=== PATIENT | male | born 1940 | race Asian ===

== ENCOUNTER 2017-03-29 04:18 | Inpatient (IN) | payer MEDICARE, OTHER ==
[~2017-03-29] VITALS: Ht 170.2 cm; Wt 72.6 kg
[2017-03-29] VITALS (8 sets, daily range): BP systolic 130–166; BP diastolic 62–94
[2017-03-29] MEDS ORDERED: Morphine Sulfate 4mg/ml Inj IVP ONE ×2 (04:45→08:30)
[2017-03-29 05:20] LABS: EOSINOPHILS % (AUTO) 7.6 % (0.0-3.0); LYMPHOCYTES % (AUTO) 12.3 % (20.0-45.0); MEAN CORPUSCULAR HEMOGLOBIN 28.2 PG (27.0-31.0); MEAN CORPUSCULAR HGB CONC 31.6 G/DL (32.0-36.0); MEAN CORPUSCULAR VOLUME 89 FL (80-99); MEAN PLATELET VOLUME 6.9 FL (6.5-10.1); MONOCYTES % (AUTO) 12.7 % (1.0-10.0); NEUTROPHILS % (AUTO) 66.5 % (45.0-75.0); PLATELET COUNT 255 K/UL (150-450); RED BLOOD COUNT 4.81 M/UL (4.70-6.10); RED CELL DISTRIBUTION WIDTH 13.2 % (11.6-14.8); WHITE BLOOD COUNT 10.3 K/UL (4.8-10.8)
[2017-03-29 05:40] LABS: TROPONIN I < 0.30 ng/mL (<=0.30)
[2017-03-29 05:41] LABS: ALANINE AMINOTRANSFERASE 10 U/L (3-41); ALBUMIN/GLOBULIN RATIO 1.4 (1.0-2.7); ANION GAP 10 (5-15); ASPARTATE AMINO TRANSFERASE 14 U/L (5-40); CALCIUM 9.2 mg/dL (8.6-10.2); CARBON DIOXIDE 28 mEQ/L (20-30); CHLORIDE 99 mEQ/L (98-107); CREATININE 1.2 mg/dL (0.7-1.2); HEMOLYSIS 2; LIPASE 252 U/L (< 60); POTASSIUM 4.2 mEQ/L (3.4-4.9); SODIUM 137 mEQ/L (135-145); TOTAL PROTEIN 7.3 g/dL (6.6-8.7)
--- NOTE | 2017-03-29 05:47 | Emergency Room Report ---
History of Present Illness General Chief Complaint: Lower Back Pain or Injury Source: Patient (JHONY HOWE M.D.) Present Illness HPI 77-year-old male presents ED complaining of back pain. is at bedside states patient is complaining of left-sided back pain for the last 3 days. Was scheduled to see his PMD today but the pain was so bad he came into the ER. Patient notes pain to the left lower back. 05/24, sharp, nonradiating. Patient denies any prior history of back pain. Denies any recent trauma. Patient is also complaining of some abdominal pain. Denies chest pain or shortness of breath. Denies dysuria or hematuria. No other aggravating or leading factors. Denies any other associated symptoms (JHONY HOWE M.D.) Allergies: Coded Allergies: No Known Allergies (Verified Allergy, Mild, 08/29/10) Patient History Past Medical History: asthma Past Surgical History: none Pertinent Family History: none Social History: Denies: alcohol use, drug use, smoking Immunizations: UTD Reviewed Nursing Documentation: PMH: Agreed, PSxH: Agreed (JHONY HOWE M.D.) Nursing Documentation-PMH Hx Asthma: Yes (JHONY HOWE M.D.) Review of Systems All Other Systems: negative except mentioned in HPI (JHONY HOWE M.D.) Physical Exam Vital Signs Date Time Temp Pulse Resp B/P Pulse Ox O2 Delivery O2 Flow Rate FiO2 03/29/17 04:36 97.9 87 18 158/87 98 Room Air Sp02 EP Interpretation: reviewed, normal General Appearance: alert, GCS 15, non-toxic, mild distress Head: normocephalic Eyes: bilateral eye PERRL, bilateral eye normal inspection ENT: normal ENT inspection Neck: normal inspection Respiratory: chest non-tender, lungs clear, normal breath sounds, speaking full sentences Cardiovascular #1: regular rate, rhythm, no edema Gastrointestinal: normal bowel sounds, soft, non-distended, no guarding, no rebound, tenderness Rectal: deferred Genitourinary: no CVA tenderness Musculoskeletal: tender - paraspinal lumbar tenderness Neurologic: alert, oriented x3, responsive, motor strength/tone normal, sensory intact, speech normal Psychiatric: judgement/insight normal, memory normal, mood/affect normal, no suicidal/homicidal ideation Skin: normal inspection Lymphatic: normal inspection (JHONY HOWE M.D.) Medical Decision Making Diagnostic Impression: Primary Impression: Abdominal pain Additional Impression: Pancreatitis ER Course Received signout from Dr. Howe 77 yo M with abd pain found to have pancreatitis with elevated lipase Patient received IV fluids and morphine. CT abdomen pelvis prelim read from radiology no acute intra-abdominal disease. Discussed with hospitalist Dr. Primitivo Mohan. Will admit to [facility]. (Denis Kohli M.D.) Last Vital Signs Date Time Temp Pulse Resp B/P Pulse Ox O2 Delivery O2 Flow Rate FiO2 03/29/17 05:28 97.9 03/29/17 04:44 18 158/87 98 Room Air 03/29/17 04:36 87 (JHONY HOWE M.D.) Referrals: TOMASA VALERO (PCP) JHONY HOWE M.D. Mar 29, 2017 05:47 Denis Kohli M.D. Mar 29, 2017 07:57
[2017-03-29 06:12] LABS: APPEARANCE,URINE CLEAR; KETONES,URINE 1+ (NEGATIVE); LEUKOCYTE ESTERASE ,URINE NEGATIVE (NEGATIVE); NITRITE,URINE NEGATIVE (NEGATIVE); PH,URINE 6 (4.5-8.0); PROTEIN,URINE 2+ (NEGATIVE); UROBILINOGEN,URINE NORMAL MG/DL (0.0-1.0)
[2017-03-29 06:21] LABS: WBC,URINE 0 /HPF (0 - 0)
[2017-03-29] MEDS ORDERED: SIMVASTATIN40 MG ORAL (06:37)
[2017-03-29] MEDS ORDERED: ALLOPURINOL100 M1 ORAL (06:37)
[2017-03-29] MEDS ORDERED: TAMSULOSIN HCL0.4 MG ORAL (06:37)
[2017-03-29] MEDS ORDERED: DALIRESP500 MCG PO (06:37)
[2017-03-29] MEDS ORDERED: SYMBICORT 16010.2 G1 IH (06:37)
[2017-03-29] MEDS ORDERED: MONTELUKAST SOD10 MG ORAL (06:37)
--- NOTE | 2017-03-29 09:31 | Diagnostic Imaging Report ---
Clinical Indication: Abdominal pain Technique: No oral contrast utilized, per emergency room physician request IV administration nonionic contrast. Venous phase spiral acquisition obtained through the abdomen and pelvis. Multiplanar reconstructions were generated. Total dose length product 759 mGycm. CTDIvol(s) 15 mGy. Dose reduction achieved using automated exposure control Comparison: 06/25/2009 Findings: What is probably a normal appendix is demonstrated, less apparent than previously. There is no evidence of diverticulosis or diverticulitis. No small bowel distention. No free or loculated intraperitoneal air or fluid is evident. There is a small sliding-type hiatal hernia The liver, gallbladder, bile ducts, pancreas, spleen, adrenals are unremarkable. The kidneys demonstrate bilateral cysts as well as bilateral subcentimeter low-attenuation lesions which are too small to characterize but most likely represent benign simple cysts, similar in appearance to the previous exam. No retroperitoneal or pelvic mass or adenopathy. Varicosities are seen within the pelvis. The prostate is prominent, indents the bladder floor. Bladder is unremarkable. The included lung bases are clear. The heart is mildly enlarged. The bones demonstrate degenerative spondylosis changes. Impression: No acute abnormality Prominent prostate, indenting the bladder floor, somewhat larger than previously. Correlate with clinical and laboratory findings Cardiomegaly Pelvic varicosities, of uncertain significance Degenerative spondylosis Bilateral renal cysts. Bilateral renal low-attenuation lesions which are too small to characterize, most likely benign simple cysts. No further followup necessary Other findings as noted, including small sliding-type hiatal hernia, degenerative spondylosis This agrees with the preliminary interpretation provided overnight by Dr. Bauer The CT scanner at [facility] is accredited by the [employer] and the scans are performed using protocols designed to limit radiation exposure to as low as reasonably achievable to attain images of sufficient resolution adequate for diagnostic evaluation.
[2017-03-29] MEDS ORDERED: Zolpidem 5mg tab ORAL ONE (10:45)
[2017-03-29] MEDS: cefTRIAXone 1 GM in NS 55 ML IVPB SCH (13:34)
[2017-03-29] MEDS ORDERED: Morphine Sulfate 2mg/ml Inj IVP PRN (14:15)
[2017-03-29] MEDS ORDERED: Metoclopramide 10mg/2ml Inj IVP PRN (14:15)
[2017-03-29] MEDS ORDERED: Milk of Magnesia 30ml Ud ORAL PRN (14:15)
[2017-03-29] MEDS ORDERED: Morphine Sulfate 4mg/ml Inj IVP PRN (14:15)
[2017-03-29] MEDS ORDERED: Miralax 17gm pkt ORAL PRN (14:15)
--- NOTE | 2017-03-29 14:55 | Infectious Diseases Prog Note ---
Assessment/Plan Assessment/Plan Full consult dictated: A) 1) ? scabies rash 2) hematuria, ? uti/pyelonephritis, ? cva pain left 3) pancreatitis, abdominal pain/back pain, ? cva pain 4) bph P) 1) elimite x 1 and repeat in one week 2) rocephin, check urine culture 3) ct noted 4) check labs 5) thank you Subjective Allergies: Coded Allergies: No Known Allergies (Verified Allergy, Mild, 08/29/10) Objective Vital Signs Last 24 Hour Vital Signs Date Time Temp Pulse Resp B/P Pulse Ox O2 Delivery O2 Flow Rate FiO2 03/29/17 13:46 97.0 03/29/17 12:00 97.9 80 18 166/94 98 Room Air 03/29/17 11:22 97 20 154/79 99 Room Air 03/29/17 11:00 97 20 154/79 97 Room Air 03/29/17 09:23 97.0 03/29/17 07:10 97.0 71 16 153/74 98 Room Air 03/29/17 06:25 97.0 90 18 139/62 97 Room Air 03/29/17 05:28 97.9 03/29/17 04:44 97.9 18 158/87 98 Room Air 03/29/17 04:36 97.9 87 18 158/87 98 Room Air Height (Feet): 5 Height (Inches): 7.00 Weight (Pounds): 160 Laboratory Tests Test 03/29/17 04:50 03/29/17 05:55 White Blood Count 10.3 K/UL (4.8-10.8) Red Blood Count 4.81 M/UL (4.70-6.10) Hemoglobin 13.6 G/DL (14.2-18.0) L Hematocrit 42.9 % (42.0-52.0) Mean Corpuscular Volume 89 FL (80-99) Mean Corpuscular Hemoglobin 28.2 PG (27.0-31.0) Mean Corpuscular Hemoglobin Concent 31.6 G/DL (32.0-36.0) L Red Cell Distribution Width 13.2 % (11.6-14.8) Platelet Count 255 K/UL (150-450) Mean Platelet Volume 6.9 FL (6.5-10.1) Neutrophils (%) (Auto) 66.5 % (45.0-75.0) Lymphocytes (%) (Auto) 12.3 % (20.0-45.0) L Monocytes (%) (Auto) 12.7 % (1.0-10.0) H Eosinophils (%) (Auto) 7.6 % (0.0-3.0) H Basophils (%) (Auto) 1.0 % (0.0-2.0) Sodium Level 137 mEQ/L (135-145) Potassium Level 4.2 mEQ/L (3.4-4.9) Chloride Level 99 mEQ/L (98-107) Carbon Dioxide Level 28 mEQ/L (20-30) Anion Gap 10 (5-15) Blood Urea Nitrogen 16 mg/dL (7-23) Creatinine 1.2 mg/dL (0.7-1.2) Estimat Glomerular Filtration Rate mL/min (>60) Glucose Level 117 mg/dL (74-106) H Calcium Level 9.2 mg/dL (8.6-10.2) Total Bilirubin 0.5 mg/dL (0.0-1.2) Aspartate Amino Transf (AST/SGOT) 14 U/L (5-40) Alanine Aminotransferase (ALT/SGPT) 10 U/L (3-41) Alkaline Phosphatase 57 U/L (40-129) Troponin I < 0.30 ng/mL (<=0.30) Total Protein 7.3 g/dL (6.6-8.7) Albumin 4.3 g/dL (3.5-5.2) Globulin 3.0 g/dL Albumin/Globulin Ratio 1.4 (1.0-2.7) Lipase 252 U/L (< 60) H Prostate Specific Antigen 4.7 ng/mL (< 4.5) H Urine Color Pale yellow Urine Appearance Clear Urine pH 6 (4.5-8.0) Urine Specific [place] 1.015 (1.005-1.035) Urine Protein 2+ (NEGATIVE) H Urine Glucose (UA) Negative (NEGATIVE) Urine Ketones 1+ (NEGATIVE) H Urine Occult Blood 4+ (NEGATIVE) H Urine Nitrite Negative (NEGATIVE) Urine Bilirubin Negative (NEGATIVE) Urine Urobilinogen Normal MG/DL (0.0-1.0) Urine Leukocyte Esterase Negative (NEGATIVE) Urine RBC 5-10 /HPF (0 - 0) H Urine WBC 0 /HPF (0 - 0) Urine Squamous Epithelial Cells None /LPF (NONE/OCC) Urine Bacteria None /HPF (NONE) Current Medications Medications (Trade) Dose Ordered Sig/Adore Route PRN Reason Start Time Stop Time Status Last Admin Dose Admin Acetaminophen (Tylenol) 650 mg Q6H PRN ORAL Mild Pain/Temp > 100.5 03/29/17 10:45 04/28/17 10:44 03/29/17 12:47 Bisacodyl 10 mg 10 mg HSPRN PRN RECTAL Constipation 03/29/17 14:30 04/28/17 14:14 Ceftriaxone Sodium/Sodium Chloride (Rocephin/Sodium Chloride) 55 ml @ 110 mls/hr Q24H IVPB 03/29/17 12:00 04/05/17 11:59 03/29/17 13:34 Dextrose (Dextrose 50%) STAT PRN IV Hypoglycemia 03/29/17 14:15 04/28/17 14:14 Diphenhydramine HCl (Benadryl) 25 mg Q6H PRN ORAL Itching/Pruritis 03/29/17 14:15 04/28/17 14:14 Docusate Sodium (Colace) 100 mg EVERY 12 HOURS ORAL 03/29/17 21:00 04/28/17 20:59 Heparin Sodium (Porcine) (Heparin 5000 units/ml) 5,000 units EVERY 8 HOURS SUBQ 03/29/17 14:00 04/28/17 13:59 Magnesium Hydroxide (Mom) 30 ml HSPRN PRN ORAL Constipation 03/29/17 14:15 04/28/17 14:14 Metoclopramide HCl (Reglan) 10 mg Q6H PRN IVP Nausea & Vomiting 03/29/17 14:15 04/28/17 14:14 Morphine Sulfate (Morphine Sulfate) 2 mg Q3H PRN IVP Moderate Pain (Pain Scale 4-6) 03/29/17 14:15 04/05/17 14:14 Morphine Sulfate (Morphine Sulfate) 4 mg Q3H PRN IVP Severe Pain (Pain Scale 7-10) 03/29/17 14:15 04/05/17 14:14 Ondansetron HCl (Zofran) 4 mg Q6H PRN IVP Nausea & Vomiting 03/29/17 14:15 04/28/17 14:14 Pantoprazole (Protonix) 40 mg DAILY ORAL 03/30/17 09:00 04/29/17 08:59 Polyethylene Glycol (Miralax) 17 gm HSPRN PRN ORAL Constipation 03/29/17 14:15 04/28/17 14:14 Potassium Chloride/Dextrose/ Sodium Chloride (KCl/D5 0.45% NS) 1,005 ml @ 100 mls/hr Q10H3M IV 03/29/17 15:00 04/28/17 14:59 Zolpidem Tartrate 5 mg 5 mg HSPRN PRN ORAL INSOMNIA 03/29/17 21:00 04/28/17 20:59 ASHLEY DURAN Mar 29, 2017 14:55
[2017-03-29] MEDS ORDERED: D5 1/2NS w/KCl 20mEq 1,000 ML IV SCH (15:00)
[2017-03-29] MEDS: Potassium Chloride 10 MEQ in D5 1/2NS 1,000 ML IV SCH (15:21)
[2017-03-29] MEDS: Heparin 5000 units/ml inj SUBQ SCH ×2 (15:23→20:45)
--- NOTE | 2017-03-29 15:27 | GI Initial Consult Note ---
Radha Peña NGenaro 03/29/17 1527: History of Present Illness General Date patient seen: Mar 29, 2017 Time patient seen: 15:17 Reason for Hospitalization: Lower Back Pain or Injury Referring physician: HARLEY Reason for Consultation: PANCREATITIS Present Illness HPI 77-year-old male presents ED complaining of back pain. is at bedside states patient is complaining of left-sided back pain for the last 3 days. Was scheduled to see his PMD today but the pain was so bad he came into the ER. Patient notes pain to the left lower back. 05/24, sharp, nonradiating. Patient denies any prior history of back pain. Denies any recent trauma. Patient is also complaining of some abdominal pain. Denies chest pain or shortness of breath. Denies dysuria or hematuria. No other aggravating or leading factors. Denies any other associated symptoms GI Consult. HPI as noted above. GI consulted for pancreatitis. ROS limited, patient is fatigue with at bedside. Patient presents today with pancreatitis, elevated lipase levels of 200+. Denies any ETOH, tobacco, IVDA use. CT AP shows no abnormality. Unknown history of endoscopic procedures at this time. Home Meds Reported Medications Budesonide/Formoterol Fumarate (SYMBICORT 160-4.5 MCG INHALER) 10.2 Gm Hfa.aer.ad, 1 PUFF IH, #1 INH 0 Refills 03/29/17 Roflumilast (DALIRESP) 500 Mcg Tablet, 500 MCG PO DAILY, TAB 03/29/17 Montelukast Sodium* (MONTELUKAST SODIUM*) 10 Mg Tablet, 10 MG ORAL DAILY, TAB 03/29/17 Tamsulosin Hcl (TAMSULOSIN HCL*) 0.4 Mg Cap.er.24h, 0.4 MG ORAL BEDTIME, CAP 03/29/17 Simvastatin (ZOCOR) 40 Mg Tablet, 40 MG ORAL BEDTIME, TAB 03/29/17 Allopurinol* (ALLOPURINOL*) 100 Mg Tablet, 100 MG ORAL DAILY, TAB 03/29/17 Med list reviewed/reconciled: Yes Allergies: Coded Allergies: No Known Allergies (Verified Allergy, Mild, 08/29/10) Patient History Limited by: medical condition History Provided By: Family Member, Medical Record Past Medical History: asthma PMH Narrative Past Medical History: asthma Past Surgical History: none Pertinent Family History: none Social History: Denies: alcohol use, drug use, smoking Immunizations: UTD Social History: Denies: alcohol use, drug use, other, smoking Review of Systems All Other Systems: negative except mentioned in HPI Physical Exam Vital Signs Date Time Temp Pulse Resp B/P Pulse Ox O2 Delivery O2 Flow Rate FiO2 03/29/17 04:36 97.9 87 18 158/87 98 Room Air Sp02 EP Interpretation: reviewed Labs Laboratory Tests Test 03/29/17 04:50 03/29/17 05:55 White Blood Count 10.3 K/UL (4.8-10.8) Red Blood Count 4.81 M/UL (4.70-6.10) Hemoglobin 13.6 G/DL (14.2-18.0) L Hematocrit 42.9 % (42.0-52.0) Mean Corpuscular Volume 89 FL (80-99) Mean Corpuscular Hemoglobin 28.2 PG (27.0-31.0) Mean Corpuscular Hemoglobin Concent 31.6 G/DL (32.0-36.0) L Red Cell Distribution Width 13.2 % (11.6-14.8) Platelet Count 255 K/UL (150-450) Mean Platelet Volume 6.9 FL (6.5-10.1) Neutrophils (%) (Auto) 66.5 % (45.0-75.0) Lymphocytes (%) (Auto) 12.3 % (20.0-45.0) L Monocytes (%) (Auto) 12.7 % (1.0-10.0) H Eosinophils (%) (Auto) 7.6 % (0.0-3.0) H Basophils (%) (Auto) 1.0 % (0.0-2.0) Sodium Level 137 mEQ/L (135-145) Potassium Level 4.2 mEQ/L (3.4-4.9) Chloride Level 99 mEQ/L (98-107) Carbon Dioxide Level 28 mEQ/L (20-30) Anion Gap 10 (5-15) Blood Urea Nitrogen 16 mg/dL (7-23) Creatinine 1.2 mg/dL (0.7-1.2) Estimat Glomerular Filtration Rate mL/min (>60) Glucose Level 117 mg/dL (74-106) H Calcium Level 9.2 mg/dL (8.6-10.2) Total Bilirubin 0.5 mg/dL (0.0-1.2) Aspartate Amino Transf (AST/SGOT) 14 U/L (5-40) Alanine Aminotransferase (ALT/SGPT) 10 U/L (3-41) Alkaline Phosphatase 57 U/L (40-129) Troponin I < 0.30 ng/mL (<=0.30) Total Protein 7.3 g/dL (6.6-8.7) Albumin 4.3 g/dL (3.5-5.2) Globulin 3.0 g/dL Albumin/Globulin Ratio 1.4 (1.0-2.7) Lipase 252 U/L (< 60) H Prostate Specific Antigen 4.7 ng/mL (< 4.5) H Urine Color Pale yellow Urine Appearance Clear Urine pH 6 (4.5-8.0) Urine Specific [place] 1.015 (1.005-1.035) Urine Protein 2+ (NEGATIVE) H Urine Glucose (UA) Negative (NEGATIVE) Urine Ketones 1+ (NEGATIVE) H Urine Occult Blood 4+ (NEGATIVE) H Urine Nitrite Negative (NEGATIVE) Urine Bilirubin Negative (NEGATIVE) Urine Urobilinogen Normal MG/DL (0.0-1.0) Urine Leukocyte Esterase Negative (NEGATIVE) Urine RBC 5-10 /HPF (0 - 0) H Urine WBC 0 /HPF (0 - 0) Urine Squamous Epithelial Cells None /LPF (NONE/OCC) Urine Bacteria None /HPF (NONE) General Appearance: no apparent distress, alert Head: normocephalic EENT: PERRL/EOMI, normal ENT inspection Neck: supple Respiratory: normal breath sounds, no respiratory distress Cardiovascular: normal rate Gastrointestinal: normal inspection, non tender, soft Rectal: deferred Musculoskeletal: normal inspection, back normal, digits/nails normal, gait/ station normal Neurologic: normal inspection, alert, oriented x3, responsive Psychiatric: normal inspection, judgement/insight normal, memory normal Skin: normal inspection, normal color, no rash, warm/dry Lymphatic: normal inspection, no adenopathy Current Medications Current Medications Medications (Trade) Dose Ordered Sig/Adore Route PRN Reason Start Time Stop Time Status Last Admin Dose Admin Acetaminophen (Tylenol) 650 mg Q6H PRN ORAL Mild Pain/Temp > 100.5 03/29/17 10:45 04/28/17 10:44 03/29/17 12:47 Bisacodyl 10 mg 10 mg HSPRN PRN RECTAL Constipation 03/29/17 14:30 04/28/17 14:14 Ceftriaxone Sodium/Sodium Chloride (Rocephin/Sodium Chloride) 55 ml @ 110 mls/hr Q24H IVPB 03/29/17 12:00 04/05/17 11:59 03/29/17 13:34 Dextrose (Dextrose 50%) STAT PRN IV Hypoglycemia 03/29/17 14:15 04/28/17 14:14 Diphenhydramine HCl (Benadryl) 25 mg Q6H PRN ORAL Itching/Pruritis 03/29/17 14:15 04/28/17 14:14 Docusate Sodium (Colace) 100 mg EVERY 12 HOURS ORAL 03/29/17 21:00 04/28/17 20:59 Heparin Sodium (Porcine) (Heparin 5000 units/ml) 5,000 units EVERY 8 HOURS SUBQ 03/29/17 14:00 04/28/17 13:59 Magnesium Hydroxide (Mom) 30 ml HSPRN PRN ORAL Constipation 03/29/17 14:15 04/28/17 14:14 Metoclopramide HCl (Reglan) 10 mg Q6H PRN IVP Nausea & Vomiting 03/29/17 14:15 04/28/17 14:14 Morphine Sulfate (Morphine Sulfate) 2 mg Q3H PRN IVP Moderate Pain (Pain Scale 4-6) 03/29/17 14:15 04/05/17 14:14 Morphine Sulfate (Morphine Sulfate) 4 mg Q3H PRN IVP Severe Pain (Pain Scale 7-10) 03/29/17 14:15 04/05/17 14:14 Ondansetron HCl (Zofran) 4 mg Q6H PRN IVP Nausea & Vomiting 03/29/17 14:15 04/28/17 14:14 Pantoprazole (Protonix) 40 mg DAILY ORAL 03/30/17 09:00 04/29/17 08:59 Permethrin (Elimite) 1 applic ONCE ONCE TOPIC 03/29/17 16:00 03/29/17 16:01 Polyethylene Glycol (Miralax) 17 gm HSPRN PRN ORAL Constipation 03/29/17 14:15 04/28/17 14:14 Potassium Chloride/Dextrose/ Sodium Chloride (KCl/D5 0.45% NS) 1,005 ml @ 100 mls/hr Q10H3M IV 03/29/17 15:00 04/28/17 14:59 Zolpidem Tartrate 5 mg 5 mg HSPRN PRN ORAL INSOMNIA 03/29/17 21:00 04/28/17 20:59 GI: Plan Problems: (1) Abdominal pain (2) Pancreatitis Plan CT AP reviewed >> No acute abnormality elevated lipase >> 252 denies ETOH use maintain NPO + IV hydration ppi pain control fu lipid panel repeat amylase/lipase fu labs outpatient GI procedures. Discussed with Dr. Almonte. Thank you for referring this patient, we will follow. MEGAN ALMONTE 04/01/17 1025: History of Present Illness General Reason for Hospitalization: Lower Back Pain or Injury Present Illness Home Meds Reported Medications Budesonide/Formoterol Fumarate (SYMBICORT 160-4.5 MCG INHALER) 10.2 Gm Hfa.aer.ad, 1 PUFF IH, #1 INH 0 Refills 03/29/17 Roflumilast (DALIRESP) 500 Mcg Tablet, 500 MCG PO DAILY, TAB 03/29/17 Montelukast Sodium* (MONTELUKAST SODIUM*) 10 Mg Tablet, 10 MG ORAL DAILY, TAB 03/29/17 Tamsulosin Hcl (TAMSULOSIN HCL*) 0.4 Mg Cap.er.24h, 0.4 MG ORAL BEDTIME, CAP 03/29/17 Simvastatin (ZOCOR) 40 Mg Tablet, 40 MG ORAL BEDTIME, TAB 03/29/17 Allopurinol* (ALLOPURINOL*) 100 Mg Tablet, 100 MG ORAL DAILY, TAB 03/29/17 Allergies: Coded Allergies: No Known Allergies (Verified Allergy, Mild, 08/29/10) GI: Plan Plan The patient was seen and examined at bedside and all new and available data was reviewed in the patients chart. I agree with the above findings, impression and plan. (Patient seen earlier today. Signature stamp does not reflect patient encounter time.). -Radha Chopra MD N.PKota Mar 29, 2017 15:27 MEGAN ALMONTE Apr 01, 2017 10:25
--- NOTE | 2017-03-29 15:37 | History and Physical ---
History of Present Illness General Date patient seen: Mar 29, 2017 Time patient seen: 15:37 Reason for Hospitalization: Abd pain and back pain Present Illness HPI 77y/o male with pmh of HLD, gout, COPD who presents with abd pain and back pain. Pt has had worsening symptoms for 3 days. He describes back pain radiating to abdomen. He was supposed to see PMD today but pain was so bad that he came into ER. Pain described as sharp. Denies prior episodes of similar pain. Denies trauma, f/c, n/v, d/c, chest pain, SOB. Also c/o dysuria. Has skin lesions throughout and has had a recent biopsy. It is itchy. He is applying a topical steroid to lesions w/ some improvement. Denies alcohol abuse. Allergies: Coded Allergies: No Known Allergies (Verified Allergy, Mild, 08/29/10) Medication History Scheduled Allopurinol* (Allopurinol*), 100 MG ORAL DAILY, (Reported) Montelukast Sodium* (Montelukast Sodium*), 10 MG ORAL DAILY, (Reported) Roflumilast (Daliresp), 500 MCG PO DAILY, (Reported) Simvastatin (Zocor), 40 MG ORAL BEDTIME, (Reported) Tamsulosin Hcl (Tamsulosin Hcl*), 0.4 MG ORAL BEDTIME, (Reported) Miscellaneous Medications Budesonide/Formoterol Fumarate (Symbicort 160-4.5 Mcg Inhaler), 1 PUFF IH, ( Reported) Patient History History Provided By: Patient, Family Member, PMD Healthcare decision maker Resuscitation status Advanced Directive on File Past Medical/Surgical History Past Medical/Surgical History: (1) BPH (benign prostatic hyperplasia) (2) HLD (hyperlipidemia) (3) Gout (4) COPD (chronic obstructive pulmonary disease) Family History Family History: Patient reports no known family medical history. Social History Social History: (1) Lives with family Review of Systems Constitutional: Reports: weakness Eye: Reports: no symptoms ENT: Reports: no symptoms Respiratory: Reports: no symptoms Cardiovascular: Reports: no symptoms Gastrointestinal: Reports: abdominal pain Genitourinary: Reports: dysuria, no symptoms Musculoskeletal: Reports: no symptoms Skin: Reports: lesions Psychiatric: Reports: no symptoms Neurological: Reports: no symptoms Endocrine: Reports: no symptoms Hematologic/Lymphatic: Reports: no symptoms Physical Exam Physical Exam Narrative General: alert, cooperative, no distress, appears stated age Head: normocephalic, without obvious abnormality, atraumatic Eyes: conjunctivae/corneas clear. PERRL, EOM's intact Throat: lips, mucosa, and tongue normal. MMM Neck: supple, symmetrical, trachea midline, and no JVD Lungs: clear to auscultation bilaterally Heart: regular rate and rhythm, S1, S2 normal, no murmur, click, rub or gallop Abdomen: soft, +mild TTP of epigastrium, non-distended, bowel sounds normal; no masses or organomegaly Extremities: extremities normal, atraumatic, no cyanosis or edema Pulses: 2+ and symmetric Skin: skin color, texture, turgor normal; no rashes or lesions Neurologic: grossly normal, no focal deficits Last 24 Hour Vital Signs Date Time Temp Pulse Resp B/P Pulse Ox O2 Delivery O2 Flow Rate FiO2 03/29/17 13:46 97.0 03/29/17 12:00 97.9 80 18 166/94 98 Room Air 03/29/17 11:22 97 20 154/79 99 Room Air 03/29/17 11:00 97 20 154/79 97 Room Air 03/29/17 09:23 97.0 03/29/17 07:10 97.0 71 16 153/74 98 Room Air 03/29/17 06:25 97.0 90 18 139/62 97 Room Air 03/29/17 05:28 97.9 03/29/17 04:44 97.9 18 158/87 98 Room Air 03/29/17 04:36 97.9 87 18 158/87 98 Room Air Intake and Output 03/28/17 03/29/17 19:00 07:00 Intake Total 500 ml Balance 500 ml Intake IV Total 500 ml Laboratory Tests Test 03/29/17 04:50 03/29/17 05:55 White Blood Count 10.3 K/UL (4.8-10.8) Red Blood Count 4.81 M/UL (4.70-6.10) Hemoglobin 13.6 G/DL (14.2-18.0) L Hematocrit 42.9 % (42.0-52.0) Mean Corpuscular Volume 89 FL (80-99) Mean Corpuscular Hemoglobin 28.2 PG (27.0-31.0) Mean Corpuscular Hemoglobin Concent 31.6 G/DL (32.0-36.0) L Red Cell Distribution Width 13.2 % (11.6-14.8) Platelet Count 255 K/UL (150-450) Mean Platelet Volume 6.9 FL (6.5-10.1) Neutrophils (%) (Auto) 66.5 % (45.0-75.0) Lymphocytes (%) (Auto) 12.3 % (20.0-45.0) L Monocytes (%) (Auto) 12.7 % (1.0-10.0) H Eosinophils (%) (Auto) 7.6 % (0.0-3.0) H Basophils (%) (Auto) 1.0 % (0.0-2.0) Sodium Level 137 mEQ/L (135-145) Potassium Level 4.2 mEQ/L (3.4-4.9) Chloride Level 99 mEQ/L (98-107) Carbon Dioxide Level 28 mEQ/L (20-30) Anion Gap 10 (5-15) Blood Urea Nitrogen 16 mg/dL (7-23) Creatinine 1.2 mg/dL (0.7-1.2) Estimat Glomerular Filtration Rate mL/min (>60) Glucose Level 117 mg/dL (74-106) H Calcium Level 9.2 mg/dL (8.6-10.2) Total Bilirubin 0.5 mg/dL (0.0-1.2) Aspartate Amino Transf (AST/SGOT) 14 U/L (5-40) Alanine Aminotransferase (ALT/SGPT) 10 U/L (3-41) Alkaline Phosphatase 57 U/L (40-129) Troponin I < 0.30 ng/mL (<=0.30) Total Protein 7.3 g/dL (6.6-8.7) Albumin 4.3 g/dL (3.5-5.2) Globulin 3.0 g/dL Albumin/Globulin Ratio 1.4 (1.0-2.7) Lipase 252 U/L (< 60) H Prostate Specific Antigen 4.7 ng/mL (< 4.5) H Urine Color Pale yellow Urine Appearance Clear Urine pH 6 (4.5-8.0) Urine Specific [place] 1.015 (1.005-1.035) Urine Protein 2+ (NEGATIVE) H Urine Glucose (UA) Negative (NEGATIVE) Urine Ketones 1+ (NEGATIVE) H Urine Occult Blood 4+ (NEGATIVE) H Urine Nitrite Negative (NEGATIVE) Urine Bilirubin Negative (NEGATIVE) Urine Urobilinogen Normal MG/DL (0.0-1.0) Urine Leukocyte Esterase Negative (NEGATIVE) Urine RBC 5-10 /HPF (0 - 0) H Urine WBC 0 /HPF (0 - 0) Urine Squamous Epithelial Cells None /LPF (NONE/OCC) Urine Bacteria None /HPF (NONE) Height (Feet): 5 Height (Inches): 7.00 Weight (Pounds): 160 Medications Current Medications Medications (Trade) Dose Ordered Sig/Adore Route PRN Reason Start Time Stop Time Status Last Admin Dose Admin Acetaminophen (Tylenol) 650 mg Q6H PRN ORAL Mild Pain/Temp > 100.5 03/29/17 10:45 04/28/17 10:44 03/29/17 12:47 Bisacodyl 10 mg 10 mg HSPRN PRN RECTAL Constipation 03/29/17 14:30 04/28/17 14:14 Ceftriaxone Sodium/Sodium Chloride (Rocephin/Sodium Chloride) 55 ml @ 110 mls/hr Q24H IVPB 03/29/17 12:00 04/05/17 11:59 03/29/17 13:34 Dextrose (Dextrose 50%) STAT PRN IV Hypoglycemia 03/29/17 14:15 04/28/17 14:14 Diphenhydramine HCl (Benadryl) 25 mg Q6H PRN ORAL Itching/Pruritis 03/29/17 14:15 04/28/17 14:14 Docusate Sodium (Colace) 100 mg EVERY 12 HOURS ORAL 03/29/17 21:00 04/28/17 20:59 Heparin Sodium (Porcine) (Heparin 5000 units/ml) 5,000 units EVERY 8 HOURS SUBQ 03/29/17 14:00 04/28/17 13:59 03/29/17 15:23 Magnesium Hydroxide (Mom) 30 ml HSPRN PRN ORAL Constipation 03/29/17 14:15 04/28/17 14:14 Metoclopramide HCl (Reglan) 10 mg Q6H PRN IVP Nausea & Vomiting 03/29/17 14:15 04/28/17 14:14 Morphine Sulfate (Morphine Sulfate) 2 mg Q3H PRN IVP Moderate Pain (Pain Scale 4-6) 03/29/17 14:15 04/05/17 14:14 Morphine Sulfate (Morphine Sulfate) 4 mg Q3H PRN IVP Severe Pain (Pain Scale 7-10) 03/29/17 14:15 04/05/17 14:14 Ondansetron HCl (Zofran) 4 mg Q6H PRN IVP Nausea & Vomiting 03/29/17 14:15 04/28/17 14:14 Pantoprazole (Protonix) 40 mg DAILY ORAL 03/30/17 09:00 04/29/17 08:59 Permethrin (Elimite) 1 applic ONCE ONCE TOPIC 03/29/17 16:00 03/29/17 16:01 03/29/17 15:22 Polyethylene Glycol (Miralax) 17 gm HSPRN PRN ORAL Constipation 03/29/17 14:15 04/28/17 14:14 Potassium Chloride/Dextrose/ Sodium Chloride (KCl/D5 0.45% NS) 1,005 ml @ 100 mls/hr Q10H3M IV 03/29/17 15:00 04/28/17 14:59 03/29/17 15:21 Zolpidem Tartrate 5 mg 5 mg HSPRN PRN ORAL INSOMNIA 03/29/17 21:00 04/28/17 20:59 Assessment/Plan Problem List: (1) Pancreatitis ICD Codes: K85.90 - Acute pancreatitis without necrosis or infection, unspecified SNOMED: 00925708 (2) Dysuria ICD Codes: R30.0 - Dysuria SNOMED: 47226118 (3) Hematuria ICD Codes: R31.9 - Hematuria, unspecified SNOMED: 58755818 (4) Rash ICD Codes: R21 - Rash and other nonspecific skin eruption SNOMED: 338909329 (5) COPD (chronic obstructive pulmonary disease) ICD Codes: J44.9 - Chronic obstructive pulmonary disease, unspecified SNOMED: 03685415 (6) Gout ICD Codes: M10.9 - Gout, unspecified SNOMED: 94822738 (7) HLD (hyperlipidemia) ICD Codes: E78.5 - Hyperlipidemia, unspecified SNOMED: 59722319 (8) BPH (benign prostatic hyperplasia) ICD Codes: N40.0 - Benign prostatic hyperplasia without lower urinary tract symptoms SNOMED: 718156353, 233323138 Status: stable Assessment/Plan Lipase elevated w/ abd/back pain--concern for pancreatitis Hematuria, dysuria--concern for UTI Admit inpt GI consulted NPO except meds w/ sips IVFs Serial abd exams Trend LFTs ID consulted Empiric ceftriaxone (03/29-) F/u urine culture Replete lytes Cont home meds Pain control, supportive care, bowel regimen DVT Prophylaxis: SCD, HSQ Code Status: Full Hospital Classification Declaration: Based on this initial evaluation, and depending on the patient's clinical course, I anticipate that this patient will require hospitalization for 2-3 days for pancreatitis, UTI and close respiratory /hemodynamic monitoring. Disposition: Once the patient is stable to leave the hospital, I anticipate the patient will likely be discharged to the following environment: home with HH vs SNF I spent 70 minutes on this patient's case, and 38 minutes were dedicated to counseling and/or care coordination. Discussed with patient/family, nursing staff, SW/CM, GI, ID regarding clinical status, treatment course, and disposition planning. Time of note may not reflect time of encounter. Clotilde Arce M.D. Mar 29, 2017 15:37
[2017-03-29] MEDS: Docusate 100mg cap ORAL SCH (20:37)
[2017-03-29] MEDS ORDERED: Zolpidem 5mg tab ORAL PRN (21:00)
[2017-03-29] MEDS ORDERED: Heparin 5000 units/ml inj SUBQ SCH (21:00)
[2017-03-30] MEDS: Potassium Chloride 10 MEQ in D5 1/2NS 1,000 ML IV SCH ×4 (01:51→23:55)
--- NOTE | 2017-03-30 02:30 | Consultation ---
DATE OF CONSULTATION: 03/29/2017 INFECTIOUS DISEASE CONSULTATION CONSULTING PHYSICIAN: Margo Collins M.D. ATTENDING PHYSICIAN: Ella Larsen M.D. REASON FOR CONSULTATION: Rash, possible scabies rash, possible UTI. The patient's chief complaint coming into the hospital is abdominal and back pain, left CVA pain, and pancreatitis. HISTORY OF PRESENT ILLNESS: This is a 77-year-old male who comes in to the [facility] with abdominal and back pain. The patient has more CVA pain, it seems like in the left CVA area. The patient had a CT scan of the abdomen and pelvis, which showed bilateral renal cysts and prominent prostate. The patient's PSA is elevated. The patient also has had hematuria. His lipase was also elevated at 252. Infectious disease consultation was requested because of the possibility of the scabies rash. The patient has a diffuse maculopapular rash with itching. The patient is unclear if the patient has UTI with pyelonephritis, however, there is no fever at this time. The patient was placed on Rocephin 1 g IV q.24 h. pending urine culture. MAR was noted. Orders were noted. Notes were reviewed. Case was discussed with Dr. Mabry associated with Dr. Larsen. Also, case discussed with the emergency room physician. PAST MEDICAL HISTORY: The patient's past medical history looks like he does have BPH based on CT scan and elevated PSA. He has also elevated PSA, has history of asthma. The patient has a rash as described, I think he has had it for sometime. No history of diabetes or hypertension mentioned. MEDICATIONS: Upon reviewing the MAR, he is on the following medications. He is on morphine, he is on MOM, he is on polyethylene glycol, he is on Zofran, Reglan, Benadryl, IV fluids, Rocephin, Tylenol, zolpidem, docusate, potassium chloride, bisacodyl, and morphine. ALLERGIES: No known drug allergies. SOCIAL HISTORY: Negative for smoking, alcohol, or drug abuse. FAMILY HISTORY: Noncontributory. No mention of exposure to tuberculosis or cancer. REVIEW OF SYSTEMS: Constitutional: The patient has generalized weakness and fatigue. No fever, chills, night sweats, or weight loss. Head And Neck: No head pain or neck pain. Cardiac: No chest pain. Gastrointestinal: No nausea, vomiting, or diarrhea. He had abdominal pain and left CVA pain. Genitourinary: No Milner. Pulmonary: No congestion or shortness of breath. No productive cough or hemoptysis, chest pain, palpitations, or dysphagia. Skin: No rash. Diffuse maculopapular rash with itching. Extremities: No extremity pain. Neurologic: No seizures. PHYSICAL EXAMINATION: GENERAL: Alert, responsive, seems to be oriented, in no acute distress. VITAL SIGNS: Temperature is 97.0, pulse rate has been as high as 97, respiratory rate 18, blood pressure 166/94, and saturation 98%. HEAD AND NECK: Oral exam, no thrush. Eye exam, no icterus. Normocephalic. No facial droop. No neck stiffness. Neck is supple. HEART: Regular. No gallop or murmur. LUNGS: Clear bilaterally. No rhonchi or rales. ABDOMEN: Soft. Positive bowel sounds. Nontender. He has some tenderness. He also has some left CVA tenderness. SKIN: There is a maculopapular rash throughout the trunk and extremities consistent with possible drug rash versus also possible scabies rash. He has itching associated with the rash. MUSCULOSKELETAL: No effusion or contractures. Legs without cellulitis. PERIPHERAL VASCULAR: No cyanosis or gangrene. RECTAL: Deferred. GENITOURINARY: No Milner. LINES: Line site is without phlebitis. NEUROLOGIC: Intact. Nonfocal. LABORATORY AND DIAGNOSTIC DATA: Laboratory data is as follows: Creatinine is 1.2. PSA is 4.7. Lipase is 252, which is elevated, normal being less than 60. Amylase and lipase have been ordered for tomorrow. LFTs were unremarkable. White count 10.3, hemoglobin 13.6. Elevated eosinophils noted and monos noted. Urinalysis had positive RBCs, 5-10. Urine culture is pending. Imaging studies, CT scan of the abdomen and pelvis showed no obvious abscess, report was noted, it did show prominent prostate. ASSESSMENT AND PLAN: 1. The patient has diffuse maculopapular rash, possible scabies rash. We will give Elimite. He has elevated eosinophils on differential. Also, possibility of the drug rash of some type. It is unclear, if there has been a workup in the outpatient setting. Since the patient is in the hospital at this time, I favor giving Elimite and if he improves, then repeat it in one to two weeks. However, we will put on isolation for 24 hours for possible scabies rash to the trunk and extremities. 2. Hematuria, questionable UTI, questionable CVA tenderness, and UTI with pyelonephritis. He does not have fevers. Continue use of Rocephin. Check urine culture. 3. Asthma. 4. Enlarged prostate likely. 5. Elevated PSA. 6. Asthma, treatment per primary. 7. No history of diabetes or hypertension. 8. Pancreatitis. Workup per primary. Consider GI evaluation. 9. IV fluids. 10. The patient has relative anemia. 11. No allergies. 12. Social history is negative. 13. Family history noncontributory. 14. MAR was noted. 15. Case discussed with RN. 16. Continue treatment per primary consultants. 17. Continue treatment per Dr. Mabry. 18. Case was discussed with ER physician. Margo Collins M.D. DR: Clementine JOB#: [id number] CC:
[2017-03-30 04:00] VITALS: BP 140/82
[2017-03-30] MEDS: Heparin 5000 units/ml inj SUBQ SCH ×3 (05:26→21:17)
[2017-03-30 07:12] LABS: BASOPHILS % (AUTO) 0.7 % (0.0-2.0); EOSINOPHILS % (AUTO) 10.7 % (0.0-3.0); LYMPHOCYTES % (AUTO) 17.2 % (20.0-45.0); MEAN CORPUSCULAR HEMOGLOBIN 28.5 PG (27.0-31.0); MEAN CORPUSCULAR HGB CONC 31.8 G/DL (32.0-36.0); MEAN CORPUSCULAR VOLUME 90 FL (80-99); MEAN PLATELET VOLUME 6.4 FL (6.5-10.1); MONOCYTES % (AUTO) 11.1 % (1.0-10.0); NEUTROPHILS % (AUTO) 60.4 % (45.0-75.0); PLATELET COUNT 240 K/UL (150-450); RED CELL DISTRIBUTION WIDTH 13.2 % (11.6-14.8)
[2017-03-30 07:39] LABS: ALANINE AMINOTRANSFERASE 8 U/L (3-41); ALBUMIN/GLOBULIN RATIO 1.3 (1.0-2.7); ANION GAP 11 (5-15); ASPARTATE AMINO TRANSFERASE 13 U/L (5-40); CALCIUM 8.9 mg/dL (8.6-10.2); CARBON DIOXIDE 27 mEQ/L (20-30); CHLORIDE 100 mEQ/L (98-107); CHOLESTEROL 102 mg/dL (< 200); CHOLESTEROL/HDL RATIO 2.4 (3.3-4.4); HEMOLYSIS 4; LDL CHOLESTEROL (CALC.) 43 mg/dL (60-99); MAGNESIUM 1.9 mg/dL (1.7-2.5); POTASSIUM 3.9 mEQ/L (3.4-4.9); SODIUM 138 mEQ/L (135-145); TOTAL PROTEIN 6.7 g/dL (6.6-8.7)
[2017-03-30 08:08] LABS: AMYLASE 50 U/L (10-110); LIPASE 46 U/L (< 60)
[2017-03-30 08:12] VITALS: BP 150/83
[2017-03-30] MEDS: Docusate 100mg cap ORAL SCH ×3 (09:00→21:17)
[2017-03-30] MEDS: Montelukast 10mg tablet ORAL SCH (09:33)
[2017-03-30] MEDS: Allopurinol 100mg Tab ORAL SCH (09:33)
[2017-03-30] MEDS ORDERED: Simethicone 80mg tab ORAL PRN (10:15)
[2017-03-30] MEDS ORDERED: Norco 10mg/325mg tab ORAL PRN (10:15)
--- NOTE | 2017-03-30 11:00 | GI Progress Note ---
Assessment/Plan Problems: (1) Scabies ICD Codes: B86 - Scabies SNOMED: 24878005, 457192816 (2) Pancreatitis ICD Codes: K85.90 - Acute pancreatitis without necrosis or infection, unspecified SNOMED: 37029606 (3) Rash ICD Codes: R21 - Rash and other nonspecific skin eruption SNOMED: 250035979 (4) Abdominal pain ICD Codes: R10.9 - Unspecified abdominal pain SNOMED: 86177301 Status: stable Status Narrative Discussed with Dr. Almonte. Assessment/Plan CT AP reviewed >> No acute abnormality elevated lipase >> now normal denies ETOH use lipid panel >> unremarkable adv to low fat/cardiac diet ppi pain control fu labs outpatient GI procedures. Subjective Subjective denies abdominal pain c/o of itching Objective Last 24 Hour Vital Signs Date Time Temp Pulse Resp B/P Pulse Ox O2 Delivery O2 Flow Rate FiO2 03/30/17 10:32 Room Air 03/30/17 08:12 98.3 74 19 150/83 93 Room Air 03/30/17 04:00 98.1 69 18 140/82 94 Room Air 03/29/17 23:59 98.4 68 18 138/79 95 Room Air 03/29/17 20:00 98.4 69 18 145/80 94 Room Air 03/29/17 16:00 98.1 62 17 130/78 98 03/29/17 13:46 97.0 03/29/17 12:00 97.9 80 18 166/94 98 Room Air 03/29/17 11:22 97 20 154/79 99 Room Air 03/29/17 11:00 97 20 154/79 97 Room Air Intake and Output 03/29/17 03/30/17 19:00 07:00 Intake Total 525 ml 1350 ml Output Total 560 ml Balance 525 ml 790 ml IV Total 525 ml 1350 ml Output Urine Total 560 ml # Voids 1 1 Laboratory Tests Test 03/30/17 05:40 White Blood Count 7.0 K/UL (4.8-10.8) Red Blood Count 4.70 M/UL (4.70-6.10) Hemoglobin 13.4 G/DL (14.2-18.0) L Hematocrit 42.1 % (42.0-52.0) Mean Corpuscular Volume 90 FL (80-99) Mean Corpuscular Hemoglobin 28.5 PG (27.0-31.0) Mean Corpuscular Hemoglobin Concent 31.8 G/DL (32.0-36.0) L Red Cell Distribution Width 13.2 % (11.6-14.8) Platelet Count 240 K/UL (150-450) Mean Platelet Volume 6.4 FL (6.5-10.1) L Neutrophils (%) (Auto) 60.4 % (45.0-75.0) Lymphocytes (%) (Auto) 17.2 % (20.0-45.0) L Monocytes (%) (Auto) 11.1 % (1.0-10.0) H Eosinophils (%) (Auto) 10.7 % (0.0-3.0) H Basophils (%) (Auto) 0.7 % (0.0-2.0) Sodium Level 138 mEQ/L (135-145) Potassium Level 3.9 mEQ/L (3.4-4.9) Chloride Level 100 mEQ/L (98-107) Carbon Dioxide Level 27 mEQ/L (20-30) Anion Gap 11 (5-15) Blood Urea Nitrogen 9 mg/dL (7-23) Creatinine 1.0 mg/dL (0.7-1.2) Estimat Glomerular Filtration Rate mL/min (>60) Glucose Level 126 mg/dL (74-106) H Calcium Level 8.9 mg/dL (8.6-10.2) Magnesium Level 1.9 mg/dL (1.7-2.5) Total Bilirubin 0.5 mg/dL (0.0-1.2) Aspartate Amino Transf (AST/SGOT) 13 U/L (5-40) Alanine Aminotransferase (ALT/SGPT) 8 U/L (3-41) Alkaline Phosphatase 55 U/L (40-129) Total Protein 6.7 g/dL (6.6-8.7) Albumin 3.9 g/dL (3.5-5.2) Globulin 2.8 g/dL Albumin/Globulin Ratio 1.3 (1.0-2.7) Triglycerides Level 84 mg/dL (< 150) Cholesterol Level 102 mg/dL (< 200) LDL Cholesterol 43 mg/dL (60-99) L HDL Cholesterol 42 mg/dL (> 60) Cholesterol/HDL Ratio 2.4 (3.3-4.4) L Amylase Level 50 U/L (10-110) Lipase 46 U/L (< 60) Height (Feet): 5 Height (Inches): 7.00 Weight (Pounds): 160 General Appearance: no apparent distress, alert Cardiovascular: normal rate Respiratory/Chest: normal breath sounds, no respiratory distress Abdominal Exam: soft Extremities: normal range of motion Radha Peña N.P. Mar 30, 2017 11:00
[2017-03-30 11:42] VITALS: BP 144/91
[2017-03-30] MEDS: cefTRIAXone 1 GM in NS 55 ML IVPB SCH (12:58)
[2017-03-30 16:17] VITALS: BP 151/87
--- NOTE | 2017-03-30 17:04 | General Progress Note ---
Assessment/Plan Problem List: (1) Pancreatitis ICD Codes: K85.90 - Acute pancreatitis without necrosis or infection, unspecified SNOMED: 71056122 (2) Dysuria ICD Codes: R30.0 - Dysuria SNOMED: 17026955 (3) Hematuria ICD Codes: R31.9 - Hematuria, unspecified SNOMED: 96765008 (4) Rash Assessment & Plan: Pruritic ICD Codes: R21 - Rash and other nonspecific skin eruption SNOMED: 710156444 (5) COPD (chronic obstructive pulmonary disease) ICD Codes: J44.9 - Chronic obstructive pulmonary disease, unspecified SNOMED: 53479378 (6) Gout ICD Codes: M10.9 - Gout, unspecified SNOMED: 43182272 (7) HLD (hyperlipidemia) ICD Codes: E78.5 - Hyperlipidemia, unspecified SNOMED: 55248500 (8) BPH (benign prostatic hyperplasia) ICD Codes: N40.0 - Benign prostatic hyperplasia without lower urinary tract symptoms SNOMED: 010351456, 995818939 Status: stable Assessment/Plan Lipase elevated w/ abd/back pain--concern for pancreatitis Hematuria, dysuria--concern for UTI GI consulted CLD and advance as tolerated per GI IVFs Serial abd exams Trend LFTs ID consulted Empiric ceftriaxone (03/29-) F/u urine culture Replete lytes Cont home meds Pain control, supportive care, bowel regimen Attempt to obtain skin biopsy report done as outpt by PCP DVT Prophylaxis: SCD, HSQ Code Status: Full Hospital Classification Declaration: Based on this initial evaluation, and depending on the patient's clinical course, I anticipate that this patient will require hospitalization for 1-2 days for pancreatitis, UTI and close respiratory /hemodynamic monitoring. Disposition: Once the patient is stable to leave the hospital, I anticipate the patient will likely be discharged to the following environment: home with HH vs SNF I spent 40 minutes on this patient's case, and 24 minutes were dedicated to counseling and/or care coordination. Discussed with patient/family, nursing staff, SW/CM, GI, ID regarding clinical status, treatment course, and disposition planning. Time of note may not reflect time of encounter. Subjective Date patient seen: Mar 30, 2017 Time patient seen: 17:04 Constitutional: Reports: no symptoms HEENT: Reports: no symptoms Cardiovascular: Reports: no symptoms Respiratory: Reports: no symptoms Gastrointestinal/Abdominal: Reports: no symptoms Genitourinary: Reports: flank pain, pain Neurologic/Psychiatric: Reports: no symptoms Endocrine: Reports: increased thirst, no symptoms Allergies: Coded Allergies: No Known Allergies (Verified Allergy, Mild, 08/29/10) Subjective Pt feels better. Still w/ back pain. Cont to have itchy rash. s/p permethrin per ID Lipase downtrending Started on CLD per GI, tolerating well Objective Last 24 Hour Vital Signs Date Time Temp Pulse Resp B/P Pulse Ox O2 Delivery O2 Flow Rate FiO2 03/30/17 16:17 98.1 81 19 151/87 96 Room Air 03/30/17 11:42 98.1 87 20 144/91 97 Room Air 03/30/17 10:32 Room Air 03/30/17 08:12 98.3 74 19 150/83 93 Room Air 03/30/17 04:00 98.1 69 18 140/82 94 Room Air 03/29/17 23:59 98.4 68 18 138/79 95 Room Air 03/29/17 20:00 98.4 69 18 145/80 94 Room Air Intake and Output 03/29/17 03/30/17 19:00 07:00 Intake Total 525 ml 1350 ml Output Total 560 ml Balance 525 ml 790 ml IV Total 525 ml 1350 ml Output Urine Total 560 ml # Voids 1 1 Laboratory Tests 03/30/17 05:40: White Blood Count 7.0, Red Blood Count 4.70, Hemoglobin 13.4L, Hematocrit 42.1, Mean Corpuscular Volume 90, Mean Corpuscular Hemoglobin 28.5, Mean Corpuscular Hemoglobin Concent 31.8L, Red Cell Distribution Width 13.2, Platelet Count 240, Mean Platelet Volume 6.4L, Neutrophils (%) (Auto) 60.4, Lymphocytes (%) (Auto) 17.2L, Monocytes (%) (Auto) 11.1H, Eosinophils (%) (Auto) 10.7H, Basophils (%) ( Auto) 0.7, Sodium Level 138, Potassium Level 3.9, Chloride Level 100, Carbon Dioxide Level 27, Anion Gap 11, Blood Urea Nitrogen 9, Creatinine 1.0, Estimat Glomerular Filtration Rate , Glucose Level 126H, Calcium Level 8.9, Magnesium Level 1.9, Total Bilirubin 0.5, Aspartate Amino Transf (AST/SGOT) 13, Alanine Aminotransferase (ALT/SGPT) 8, Alkaline Phosphatase 55, Total Protein 6.7, Albumin 3.9, Globulin 2.8, Albumin/Globulin Ratio 1.3, Triglycerides Level 84, Cholesterol Level 102, LDL Cholesterol 43L, HDL Cholesterol 42, Cholesterol/HDL Ratio 2.4L, Amylase Level 50, Lipase 46 Height (Feet): 5 Height (Inches): 7.00 Weight (Pounds): 160 Objective General: alert, cooperative, no distress, appears stated age Head: normocephalic, without obvious abnormality, atraumatic Eyes: conjunctivae/corneas clear. PERRL, EOM's intact Throat: lips, mucosa, and tongue normal. MMM Neck: supple, symmetrical, trachea midline, and no JVD Lungs: clear to auscultation bilaterally Heart: regular rate and rhythm, S1, S2 normal, no murmur, click, rub or gallop Abdomen: soft, non-tender, non-distended, bowel sounds normal; no masses or organomegaly Extremities: extremities normal, atraumatic, no cyanosis or edema Pulses: 2+ and symmetric Skin: skin color, texture, turgor normal; no rashes or lesions Neurologic: grossly normal, no focal deficits Clotilde Arce M.D. Mar 30, 2017 17:04
--- NOTE | 2017-03-30 18:51 | Infectious Diseases Prog Note ---
Assessment/Plan Assessment/Plan ASSESSMENT AND PLAN: 1. rash - ? etiology, still with rash and itching, ? mite bites, ? fleas, ? scabies, ? rickettsia, doubt lyme based on epidemiology and no tick bites - s/p elimite - check outpatient biopsy done on patient - check rickettsia serology in am 2. ? uti, dysuria better, hematuria - rocphin - check urine culture 3. Asthma. 4. Enlarged prostate likely, elevated psa 5. hyperlipidemia 6. Asthma, treatment per primary, copd 7. No history of diabetes or hypertension. 8. Pancreatitis. Workup per primary. Consider GI evaluation. 9. gout 10. The patient has relative anemia. 11. No allergies. 12. Social history is negative. 13. Family history noncontributory. 14. MAR was noted. 15. Case discussed with RN. 16. Continue treatment per primary consultants. 17. Continue treatment per Dr. Mabry. 18. Case was discussed with ER physician. Subjective Constitutional: Reports: fatigue, Denies: fever HEENT: Denies: congestion Respiratory: Denies: shortness of breath Cardiovascular: Denies: chest pain Gastrointestinal/Abdominal: Reports: other - less abdominal and back pain, Denies: diarrhea, nausea, vomiting Genitourinary: Reports: dysuria - less, Denies: hematuria Neurologic: Reports: no symptoms Psychiatric: Reports: no symptoms Skin: Reports: other - still with ithcing , rash Hematologic: Denies: bleeding Musculoskeletal: Denies: pain Allergies: Coded Allergies: No Known Allergies (Verified Allergy, Mild, 08/29/10) Objective Vital Signs Last 24 Hour Vital Signs Date Time Temp Pulse Resp B/P Pulse Ox O2 Delivery O2 Flow Rate FiO2 03/30/17 16:17 98.1 81 19 151/87 96 Room Air 03/30/17 11:42 98.1 87 20 144/91 97 Room Air 03/30/17 10:32 Room Air 03/30/17 08:12 98.3 74 19 150/83 93 Room Air 03/30/17 04:00 98.1 69 18 140/82 94 Room Air 03/29/17 23:59 98.4 68 18 138/79 95 Room Air 03/29/17 20:00 98.4 69 18 145/80 94 Room Air Height (Feet): 5 Height (Inches): 7.00 Weight (Pounds): 160 General Appearance: no acute distress HEENT: normocephalic, atraumatic, anicteric, mucous membranes moist, PERRL, EOMI, pharynx normal, supple, no JVD Respiratory/Chest: lungs clear, normal breath sounds, no respiratory distress Cardiovascular: normal rate, regular rhythm, no gallop/murmur, no JVD Abdomen: normal bowel sounds, soft, non tender, no organomegaly, non distended Genitourinary: other - no grider Extremities: no cyanosis Skin: rash, other - no change in rash Neurologic/Psychiatric: no motor/sensory deficits, alert, oriented x 3, responsive Lymphatic: no neck adenopathy Musculoskeletal: normal muscle bulk Objective CT abdomen and pelvis: Impression: No acute abnormality Prominent prostate, indenting the bladder floor, somewhat larger than previously. Correlate with clinical and laboratory findings Cardiomegaly Pelvic varicosities, of uncertain significance Degenerative spondylosis Bilateral renal cysts. Bilateral renal low-attenuation lesions which are too small to characterize, most likely benign simple cysts. No further followup necessary Other findings as noted, including small sliding-type hiatal hernia, degenerative spondylosis urine culture pending Laboratory Tests Test 03/30/17 05:40 White Blood Count 7.0 K/UL (4.8-10.8) Red Blood Count 4.70 M/UL (4.70-6.10) Hemoglobin 13.4 G/DL (14.2-18.0) L Hematocrit 42.1 % (42.0-52.0) Mean Corpuscular Volume 90 FL (80-99) Mean Corpuscular Hemoglobin 28.5 PG (27.0-31.0) Mean Corpuscular Hemoglobin Concent 31.8 G/DL (32.0-36.0) L Red Cell Distribution Width 13.2 % (11.6-14.8) Platelet Count 240 K/UL (150-450) Mean Platelet Volume 6.4 FL (6.5-10.1) L Neutrophils (%) (Auto) 60.4 % (45.0-75.0) Lymphocytes (%) (Auto) 17.2 % (20.0-45.0) L Monocytes (%) (Auto) 11.1 % (1.0-10.0) H Eosinophils (%) (Auto) 10.7 % (0.0-3.0) H Basophils (%) (Auto) 0.7 % (0.0-2.0) Sodium Level 138 mEQ/L (135-145) Potassium Level 3.9 mEQ/L (3.4-4.9) Chloride Level 100 mEQ/L (98-107) Carbon Dioxide Level 27 mEQ/L (20-30) Anion Gap 11 (5-15) Blood Urea Nitrogen 9 mg/dL (7-23) Creatinine 1.0 mg/dL (0.7-1.2) Estimat Glomerular Filtration Rate mL/min (>60) Glucose Level 126 mg/dL (74-106) H Calcium Level 8.9 mg/dL (8.6-10.2) Magnesium Level 1.9 mg/dL (1.7-2.5) Total Bilirubin 0.5 mg/dL (0.0-1.2) Aspartate Amino Transf (AST/SGOT) 13 U/L (5-40) Alanine Aminotransferase (ALT/SGPT) 8 U/L (3-41) Alkaline Phosphatase 55 U/L (40-129) Total Protein 6.7 g/dL (6.6-8.7) Albumin 3.9 g/dL (3.5-5.2) Globulin 2.8 g/dL Albumin/Globulin Ratio 1.3 (1.0-2.7) Triglycerides Level 84 mg/dL (< 150) Cholesterol Level 102 mg/dL (< 200) LDL Cholesterol 43 mg/dL (60-99) L HDL Cholesterol 42 mg/dL (> 60) Cholesterol/HDL Ratio 2.4 (3.3-4.4) L Amylase Level 50 U/L (10-110) Lipase 46 U/L (< 60) Current Medications Medications (Trade) Dose Ordered Sig/Adore Route PRN Reason Start Time Stop Time Status Last Admin Dose Admin Acetaminophen (Tylenol) 650 mg Q6H PRN ORAL Mild Pain/Temp > 100.5 03/29/17 10:45 04/28/17 10:44 03/29/17 12:47 Acetaminophen/ Hydrocodone Bitart ([place] 10/325) 1 ea Q4H PRN ORAL For mod to severe Pain 03/30/17 10:15 04/06/17 10:14 Allopurinol (Zyloprim) 100 mg DAILY ORAL 03/30/17 09:00 04/29/17 08:59 03/30/17 09:33 Atorvastatin Calcium (Lipitor) 20 mg BEDTIME ORAL 03/30/17 21:00 04/29/17 20:59 Baclofen (Lioresal) 10 mg THREE TIMES A DAY ORAL 03/30/17 13:00 04/29/17 12:59 03/30/17 18:11 Bisacodyl 10 mg 10 mg HSPRN PRN RECTAL Constipation 03/29/17 14:30 04/28/17 14:14 Budesonide/ Formoterol Fumarate (Symbicort 160/ 4.5) 1 puff BID INH 03/30/17 09:00 04/29/17 08:59 Ceftriaxone Sodium/Sodium Chloride (Rocephin/Sodium Chloride) 55 ml @ 110 mls/hr Q24H IVPB 03/29/17 12:00 04/05/17 11:59 03/30/17 12:58 Dextrose (Dextrose 50%) STAT PRN IV Hypoglycemia 03/29/17 14:15 04/28/17 14:14 Diphenhydramine HCl (Benadryl) 25 mg Q6H PRN ORAL Itching/Pruritis 03/29/17 14:15 04/28/17 14:14 Docusate Sodium (Colace) 100 mg EVERY 12 HOURS ORAL 03/29/17 21:00 04/28/17 20:59 03/29/17 20:37 Heparin Sodium (Porcine) (Heparin 5000 units/ml) 5,000 units EVERY 8 HOURS SUBQ 03/29/17 14:00 04/28/17 13:59 03/30/17 14:32 Magnesium Hydroxide (Mom) 30 ml HSPRN PRN ORAL Constipation 03/29/17 14:15 04/28/17 14:14 Metoclopramide HCl (Reglan) 10 mg Q6H PRN IVP Nausea & Vomiting 03/29/17 14:15 04/28/17 14:14 Montelukast Sodium (Singulair) 10 mg DAILY ORAL 03/30/17 09:00 04/29/17 08:59 03/30/17 09:33 Ondansetron HCl (Zofran) 4 mg Q6H PRN IVP Nausea & Vomiting 03/29/17 14:15 9/14/17 14:14 Pantoprazole (Protonix) 40 mg DAILY ORAL 03/30/17 09:00 04/29/17 08:59 03/30/17 09:33 Polyethylene Glycol (Miralax) 17 gm HSPRN PRN ORAL Constipation 03/29/17 14:15 04/28/17 14:14 Potassium Chloride/Dextrose/ Sodium Chloride (KCl/D5 0.45% NS) 1,005 ml @ 100 mls/hr Q10H3M IV 03/29/17 15:00 04/28/17 14:59 03/30/17 12:10 Simethicone (Mylicon) 80 mg QID PRN ORAL gas 03/30/17 10:15 04/29/17 10:14 Tamsulosin HCl (Flomax) 0.4 mg BEDTIME ORAL 03/30/17 21:00 04/29/17 20:59 Zolpidem Tartrate 5 mg 5 mg HSPRN PRN ORAL INSOMNIA 03/29/17 21:00 04/28/17 20:59 ASHLEY DURAN Mar 30, 2017 18:51
[2017-03-30 20:29] VITALS: BP 147/80
[2017-03-30] MEDS: Atorvastatin 20mg tab ORAL SCH (21:16)
[2017-03-30] MEDS: Tamsulosin 0.4mg cap ORAL SCH (21:17)
[2017-03-31 00:09] VITALS: BP 148/81
[2017-03-31 03:49] VITALS: BP 150/80
[2017-03-31] MEDS: Heparin 5000 units/ml inj SUBQ SCH ×3 (06:05→20:36)
[2017-03-31 07:45] LABS: BASOPHILS % (AUTO) 0.7 % (0.0-2.0); EOSINOPHILS % (AUTO) 13.9 % (0.0-3.0); LYMPHOCYTES % (AUTO) 19.2 % (20.0-45.0); MEAN CORPUSCULAR HEMOGLOBIN 28.7 PG (27.0-31.0); MEAN CORPUSCULAR HGB CONC 32.3 G/DL (32.0-36.0); MEAN CORPUSCULAR VOLUME 89 FL (80-99); MEAN PLATELET VOLUME 6.4 FL (6.5-10.1); NEUTROPHILS % (AUTO) 53.2 % (45.0-75.0); PLATELET COUNT 264 K/UL (150-450); RED BLOOD COUNT 4.66 M/UL (4.70-6.10); RED CELL DISTRIBUTION WIDTH 13.1 % (11.6-14.8); WHITE BLOOD COUNT 6.2 K/UL (4.8-10.8)
[2017-03-31 07:53] LABS: ANION GAP 11 (5-15); CALCIUM 9.5 mg/dL (8.6-10.2); CARBON DIOXIDE 27 mEQ/L (20-30); CHLORIDE 103 mEQ/L (98-107); HEMOLYSIS 4; POTASSIUM 3.9 mEQ/L (3.4-4.9); SODIUM 141 mEQ/L (135-145)
[2017-03-31 08:00] VITALS: BP 157/84
[2017-03-31] MEDS: Montelukast 10mg tablet ORAL SCH (08:12)
[2017-03-31] MEDS: Docusate 100mg cap ORAL SCH ×2 (08:12→20:30)
[2017-03-31] MEDS: Allopurinol 100mg Tab ORAL SCH (08:12)
[2017-03-31] MEDS ORDERED: DiphenhydrAMINE & Zinc 28g Cream TOPIC PRN (10:00)
--- NOTE | 2017-03-31 10:28 | GI Progress Note ---
Assessment/Plan Problems: (1) Scabies ICD Codes: B86 - Scabies SNOMED: 90976987, 048456271 (2) Pancreatitis ICD Codes: K85.90 - Acute pancreatitis without necrosis or infection, unspecified SNOMED: 82421731 (3) Rash ICD Codes: R21 - Rash and other nonspecific skin eruption SNOMED: 700602371 (4) Abdominal pain ICD Codes: R10.9 - Unspecified abdominal pain SNOMED: 35085166 Status: stable Status Narrative Discussed with Dr. Almonte. Assessment/Plan CT AP reviewed >> No acute abnormality elevated lipase >> resolved denies ETOH use lipid panel >> unremarkable adv to low fat/cardiac diet ppi pain control fu labs outpatient GI procedures. Subjective Subjective denies abdominal pain c/o of itching right lower flank/buttock pain Objective Last 24 Hour Vital Signs Date Time Temp Pulse Resp B/P Pulse Ox O2 Delivery O2 Flow Rate FiO2 03/31/17 10:16 100 20 97 Room Air 03/31/17 09:35 Room Air 03/31/17 08:00 97.5 80 18 157/84 Room Air 03/31/17 03:49 96.6 82 20 150/80 98 Room Air 03/31/17 00:09 97.3 75 18 148/81 97 Room Air 03/30/17 21:06 Room Air 03/30/17 21:05 84 18 98 03/30/17 20:29 96.5 87 20 147/80 96 Room Air 03/30/17 16:17 98.1 81 19 151/87 96 Room Air 03/30/17 11:42 98.1 87 20 144/91 97 Room Air 03/30/17 10:32 Room Air Intake and Output 03/30/17 03/31/17 19:00 07:00 Intake Total 1235 ml 1100 ml Output Total 825 ml Balance 1235 ml 275 ml Intake Oral 680 ml IV Total 555 ml 1100 ml Output Urine Total 825 ml # Voids 1 5 # Bowel Movements 1 1 Laboratory Tests Test 03/31/17 05:00 03/31/17 05:05 Q Fever Phase I IgG Antibody Pending Q Fever Phase II IgG Antibody Pending Rickettsia IgG Ab ([place] Fever) Pending Rickettsia IgM Ab ([place] Fever) Pending White Blood Count 6.2 K/UL (4.8-10.8) Red Blood Count 4.66 M/UL (4.70-6.10) L Hemoglobin 13.4 G/DL (14.2-18.0) L Hematocrit 41.5 % (42.0-52.0) L Mean Corpuscular Volume 89 FL (80-99) Mean Corpuscular Hemoglobin 28.7 PG (27.0-31.0) Mean Corpuscular Hemoglobin Concent 32.3 G/DL (32.0-36.0) Red Cell Distribution Width 13.1 % (11.6-14.8) Platelet Count 264 K/UL (150-450) Mean Platelet Volume 6.4 FL (6.5-10.1) L Neutrophils (%) (Auto) 53.2 % (45.0-75.0) Lymphocytes (%) (Auto) 19.2 % (20.0-45.0) L Monocytes (%) (Auto) 13.0 % (1.0-10.0) H Eosinophils (%) (Auto) 13.9 % (0.0-3.0) H Basophils (%) (Auto) 0.7 % (0.0-2.0) Sodium Level 141 mEQ/L (135-145) Potassium Level 3.9 mEQ/L (3.4-4.9) Chloride Level 103 mEQ/L (98-107) Carbon Dioxide Level 27 mEQ/L (20-30) Anion Gap 11 (5-15) Blood Urea Nitrogen 9 mg/dL (7-23) Creatinine 1.0 mg/dL (0.7-1.2) Estimat Glomerular Filtration Rate mL/min (>60) Glucose Level 138 mg/dL (74-106) H Calcium Level 9.5 mg/dL (8.6-10.2) Height (Feet): 5 Height (Inches): 7.00 Weight (Pounds): 160 General Appearance: no apparent distress, alert Cardiovascular: normal rate Respiratory/Chest: normal breath sounds, no respiratory distress Abdominal Exam: normal bowel sounds, non tender, soft Genitourinary/Rectal: normal rectal exam Extremities: normal range of motion, non-tender Radha Peña N.P. Mar 31, 2017 10:28
[2017-03-31 12:34] VITALS: BP 148/85
--- NOTE | 2017-03-31 12:35 | Diagnostic Imaging Report ---
Indications: Left hip pain, denies trauma Technique: Two views left hip Findings: Comparison: None. No fracture, dislocation, lytic destruction, periosteal reaction, surrounding soft tissue swelling, or other acute changes are demonstrated. No deformity, alignment abnormality, arthritic change, abnormal soft tissue calcification, or other chronic changes are demonstrated. IMPRESSION: Negative left hip series.
--- NOTE | 2017-03-31 12:50 | Diagnostic Imaging Report ---
Indications: Sharp low back pain radiating to abdomen, denies trauma Technique: 5 views lumbar spine: 3 views of the sacrum and coccyx Findings: Comparison: CT abdomen pelvis 03/29/17; CT abdomen 01/25/14 Subcentimeter anterior and right lateral subluxation of L3 on L4 persists, unchanged. Remainder of vertebral alignment remains intact. Mild dextroscoliosis unchanged. Variable disc space narrowing and marginal osteophyte formation unchanged. Mild facet sclerosis unchanged. No fracture, lytic destruction, or other acute change identified. IMPRESSION: No evidence of acute lumbar or sacrococcygeal pathology, unchanged Stable degenerative spondylosis
[2017-03-31] MEDS: cefTRIAXone 1 GM in NS 55 ML IVPB SCH (13:20)
[2017-03-31] MEDS: Vitamin A&D Oint 2oz Tube TOPIC SCH ×2 (14:59→17:25)
[2017-03-31 16:51] VITALS: BP 148/85
--- NOTE | 2017-03-31 17:39 | Infectious Diseases Prog Note ---
Assessment/Plan Assessment/Plan ASSESSMENT AND PLAN: 1. rash - ? etiology, still with rash and itching, ? allergic reaction, ? mite bites, ? fleas, ? scabies, ? rickettsia, doubt lyme based on epidemiology and no tick bites - s/p elimite - d/w Dr. Cain, outpatient biopsy c/w allergic reaction with eosinophils - consider steroids - rickettsia serology sent 2. ? uti, dysuria better, hematuria - discontinue rocephin, s/p 3 days treatment 3. Asthma. 4. Enlarged prostate likely, elevated psa 5. hyperlipidemia 6. Asthma, treatment per primary, copd 7. No history of diabetes or hypertension. 8. Pancreatitis. Workup per primary. Consider GI evaluation. 9. gout 10. The patient has relative anemia. 11. No allergies. 12. Social history is negative. 13. Family history noncontributory. 14. MAR was noted. 15. Case discussed with RN. 16. Continue treatment per primary consultants. 17. Continue treatment per Dr. Mabry. 18. communicated with Dr. Mabry about steroids Subjective Constitutional: Denies: fever HEENT: Denies: congestion Respiratory: Denies: shortness of breath Cardiovascular: Denies: chest pain Gastrointestinal/Abdominal: Denies: diarrhea, nausea, vomiting Genitourinary: Reports: other - no Neurologic: Denies: headache Psychiatric: Denies: depression Skin: Reports: other - rash, rash Hematologic: Denies: bleeding Musculoskeletal: Denies: pain Allergies: Coded Allergies: No Known Allergies (Verified Allergy, Mild, 08/29/10) Objective Vital Signs Last 24 Hour Vital Signs Date Time Temp Pulse Resp B/P Pulse Ox O2 Delivery O2 Flow Rate FiO2 03/31/17 16:51 97.5 71 18 148/85 Room Air 03/31/17 12:34 97.9 71 18 148/85 98 Room Air 03/31/17 10:16 100 20 97 Room Air 03/31/17 09:35 Room Air 03/31/17 08:00 97.5 80 18 157/84 Room Air 03/31/17 03:49 96.6 82 20 150/80 98 Room Air 03/31/17 00:09 97.3 75 18 148/81 97 Room Air 03/30/17 21:06 Room Air 03/30/17 21:05 84 18 98 03/30/17 20:29 96.5 87 20 147/80 96 Room Air Height (Feet): 5 Height (Inches): 7.00 Weight (Pounds): 160 General Appearance: no acute distress HEENT: normocephalic, atraumatic, anicteric, mucous membranes moist, PERRL, EOMI, pharynx normal, supple, no JVD Respiratory/Chest: lungs clear, normal breath sounds, no respiratory distress, no accessory muscle use Cardiovascular: normal rate, regular rhythm, no gallop/murmur, no JVD Abdomen: normal bowel sounds, soft, non tender, no organomegaly, non distended Genitourinary: other - no grider Extremities: no cyanosis Skin: other - rash progressing 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 Correlate with clinical and laboratory findings Cardiomegaly Pelvic varicosities, of uncertain significance Degenerative spondylosis Bilateral renal cysts. Bilateral renal low-attenuation lesions which are too small to characterize, most likely benign simple cysts. No further followup necessary Other findings as noted, including small sliding-type hiatal hernia, degenerative spondylosis uc - not done Laboratory Tests Test 03/31/17 05:00 03/31/17 05:05 Q Fever Phase I IgG Antibody Pending Q Fever Phase II IgG Antibody Pending Rickettsia IgG Ab ([place] Fever) Pending Rickettsia IgM Ab ([place] Fever) Pending White Blood Count 6.2 K/UL (4.8-10.8) Red Blood Count 4.66 M/UL (4.70-6.10) L Hemoglobin 13.4 G/DL (14.2-18.0) L Hematocrit 41.5 % (42.0-52.0) L Mean Corpuscular Volume 89 FL (80-99) Mean Corpuscular Hemoglobin 28.7 PG (27.0-31.0) Mean Corpuscular Hemoglobin Concent 32.3 G/DL (32.0-36.0) Red Cell Distribution Width 13.1 % (11.6-14.8) Platelet Count 264 K/UL (150-450) Mean Platelet Volume 6.4 FL (6.5-10.1) L Neutrophils (%) (Auto) 53.2 % (45.0-75.0) Lymphocytes (%) (Auto) 19.2 % (20.0-45.0) L Monocytes (%) (Auto) 13.0 % (1.0-10.0) H Eosinophils (%) (Auto) 13.9 % (0.0-3.0) H Basophils (%) (Auto) 0.7 % (0.0-2.0) Sodium Level 141 mEQ/L (135-145) Potassium Level 3.9 mEQ/L (3.4-4.9) Chloride Level 103 mEQ/L (98-107) Carbon Dioxide Level 27 mEQ/L (20-30) Anion Gap 11 (5-15) Blood Urea Nitrogen 9 mg/dL (7-23) Creatinine 1.0 mg/dL (0.7-1.2) Estimat Glomerular Filtration Rate mL/min (>60) Glucose Level 138 mg/dL (74-106) H Calcium Level 9.5 mg/dL (8.6-10.2) Current Medications Medications (Trade) Dose Ordered Sig/Adore Route PRN Reason Start Time Stop Time Status Last Admin Dose Admin Acetaminophen (Tylenol) 650 mg Q6H PRN ORAL Mild Pain/Temp > 100.5 03/29/17 10:45 04/28/17 10:44 03/29/17 12:47 Acetaminophen/ Hydrocodone Bitart ([place] 10/325) 1 ea Q4H PRN ORAL For mod to severe Pain 03/30/17 10:15 04/06/17 10:14 Allopurinol (Zyloprim) 100 mg DAILY ORAL 03/30/17 09:00 04/29/17 08:59 03/31/17 08:12 Atorvastatin Calcium (Lipitor) 20 mg BEDTIME ORAL 03/30/17 21:00 04/29/17 20:59 03/30/17 21:16 Baclofen (Lioresal) 10 mg QHS ORAL 03/31/17 21:00 04/30/17 20:59 Bisacodyl (Dulcolax) 10 mg HSPRN PRN RECTAL Constipation 03/29/17 14:30 04/28/17 14:14 Budesonide/ Formoterol Fumarate (Symbicort 160/ 4.5) 1 puff BID INH 03/30/17 09:00 04/29/17 08:59 03/30/17 20:11 Ceftriaxone Sodium/Sodium Chloride (Rocephin/Sodium Chloride) 55 ml @ 110 mls/hr Q24H IVPB 03/29/17 12:00 04/05/17 11:59 03/31/17 13:20 Dextrose (Dextrose 50%) STAT PRN IV Hypoglycemia 03/29/17 14:15 04/28/17 14:14 Diphenhydramine HCl (Benadryl Cream) 1 applic THREE TIMES A DAY PRN TOPIC Itching 03/31/17 10:00 04/30/17 09:59 Diphenhydramine HCl (Benadryl) 25 mg Q6H PRN ORAL Itching/Pruritis 03/29/17 14:15 04/28/17 14:14 Docusate Sodium (Colace) 100 mg EVERY 12 HOURS ORAL 03/29/17 21:00 04/28/17 20:59 03/31/17 08:12 Heparin Sodium (Porcine) (Heparin 5000 units/ml) 5,000 units EVERY 8 HOURS SUBQ 03/29/17 14:00 04/28/17 13:59 03/31/17 15:00 Magnesium Hydroxide (Mom) 30 ml HSPRN PRN ORAL Constipation 03/29/17 14:15 04/28/17 14:14 Metoclopramide HCl (Reglan) 10 mg Q6H PRN IVP Nausea & Vomiting 03/29/17 14:15 04/28/17 14:14 Montelukast Sodium (Singulair) 10 mg DAILY ORAL 03/30/17 09:00 04/29/17 08:59 03/31/17 08:12 Ondansetron HCl (Zofran) 4 mg Q6H PRN IVP Nausea & Vomiting 03/29/17 14:15 04/28/17 14:14 Pantoprazole (Protonix) 40 mg DAILY ORAL 03/30/17 09:00 04/29/17 08:59 03/31/17 08:12 Polyethylene Glycol (Miralax) 17 gm HSPRN PRN ORAL Constipation 03/29/17 14:15 04/28/17 14:14 Simethicone (Mylicon) 80 mg QID PRN ORAL gas 03/30/17 10:15 04/29/17 10:14 Tamsulosin HCl (Flomax) 0.4 mg BEDTIME ORAL 03/30/17 21:00 04/29/17 20:59 03/30/17 21:17 Vitamin A/Vitamin D (A & D Oint) 1 applic BID TOPIC 03/31/17 10:00 04/30/17 09:59 03/31/17 14:59 Zolpidem Tartrate 5 mg 5 mg HSPRN PRN ORAL INSOMNIA 03/29/17 21:00 04/28/17 20:59 ASHLEY DURAN Mar 31, 2017 17:39
[2017-03-31] MEDS ORDERED: PredniSONE 20mg tab ORAL ONE (20:00)
[2017-03-31] MEDS: Tamsulosin 0.4mg cap ORAL SCH (20:30)
[2017-03-31] MEDS: Atorvastatin 20mg tab ORAL SCH (20:30)
[2017-03-31 20:56] VITALS: BP 157/92
[2017-04-01 00:01] VITALS: BP 156/88
[2017-04-01 04:24] VITALS: BP 141/83
[2017-04-01] MEDS: Heparin 5000 units/ml inj SUBQ SCH ×2 (05:48→13:57)
[2017-04-01 07:19] LABS: MEAN CORPUSCULAR HEMOGLOBIN 28.4 PG (27.0-31.0); MEAN CORPUSCULAR HGB CONC 32.2 G/DL (32.0-36.0); MEAN CORPUSCULAR VOLUME 88 FL (80-99); MEAN PLATELET VOLUME 6.2 FL (6.5-10.1); PLATELET COUNT 314 K/UL (150-450); RED BLOOD COUNT 4.86 M/UL (4.70-6.10); RED CELL DISTRIBUTION WIDTH 13.1 % (11.6-14.8); WHITE BLOOD COUNT 5.4 K/UL (4.8-10.8)
[2017-04-01 07:30] LABS: ANION GAP 10 (5-15); CALCIUM 9.7 mg/dL (8.6-10.2); CARBON DIOXIDE 27 mEQ/L (20-30); CHLORIDE 102 mEQ/L (98-107); CREATININE 1.1 mg/dL (0.7-1.2); HEMOLYSIS 4; POTASSIUM 4.4 mEQ/L (3.4-4.9); SODIUM 139 mEQ/L (135-145)
--- NOTE | 2017-04-01 07:54 | General Progress Note ---
Assessment/Plan Problem List: (1) Pancreatitis ICD Codes: K85.90 - Acute pancreatitis without necrosis or infection, unspecified SNOMED: 16954528 (2) Dysuria ICD Codes: R30.0 - Dysuria SNOMED: 29534355 (3) Hematuria ICD Codes: R31.9 - Hematuria, unspecified SNOMED: 97224454 (4) Rash Assessment & Plan: Pruritic ICD Codes: R21 - Rash and other nonspecific skin eruption SNOMED: 428093293 (5) COPD (chronic obstructive pulmonary disease) ICD Codes: J44.9 - Chronic obstructive pulmonary disease, unspecified SNOMED: 38547891 (6) Gout ICD Codes: M10.9 - Gout, unspecified SNOMED: 93316713 (7) HLD (hyperlipidemia) ICD Codes: E78.5 - Hyperlipidemia, unspecified SNOMED: 76337029 (8) BPH (benign prostatic hyperplasia) ICD Codes: N40.0 - Benign prostatic hyperplasia without lower urinary tract symptoms SNOMED: 302143035, 832937787 Status: stable Assessment/Plan Lipase elevated w/ abd/back pain--concern for pancreatitis Hematuria, dysuria--concern for UTI GI consulted CLD and advance as tolerated per GI IVFs Serial abd exams Trend LFTs Check L hip, lumbar/sacral x-rays ID consulted Empiric ceftriaxone (03/29-) F/u urine culture Replete lytes Cont home meds Pain control, supportive care, bowel regimen Attempt to obtain skin biopsy report done as outpt by PCP--> allergic reaction, eosinophils seen Trial of steroids: prednisone 60mg PO daily PT eval DC planning DVT Prophylaxis: SCD, HSQ Code Status: Full Hospital Classification Declaration: Based on this initial evaluation, and depending on the patient's clinical course, I anticipate that this patient will require hospitalization for 1-2 days for pancreatitis, UTI and close respiratory /hemodynamic monitoring. Disposition: Once the patient is stable to leave the hospital, I anticipate the patient will likely be discharged to the following environment: home with HH vs SNF I spent 40 minutes on this patient's case, and 25 minutes were dedicated to counseling and/or care coordination. Discussed with patient/family, nursing staff, SW/CM, GI, ID regarding clinical status, treatment course, and disposition planning. D/w ID re steroids Time of note may not reflect time of encounter. Subjective Date patient seen: Mar 31, 2017 Time patient seen: 12:50 ROS Limited/Unobtainable: No Constitutional: Reports: no symptoms HEENT: Reports: no symptoms Cardiovascular: Reports: no symptoms Respiratory: Reports: no symptoms Gastrointestinal/Abdominal: Reports: no symptoms Genitourinary: Reports: flank pain Neurologic/Psychiatric: Reports: no symptoms Endocrine: Reports: no symptoms Hematologic/Lymphatic: Reports: no symptoms Allergies: Coded Allergies: No Known Allergies (Verified Allergy, Mild, 08/29/10) Subjective Pt feels better. Still w/ back pain. Cont to have itchy rash. s/p permethrin per ID Tolerating regular diet Objective Last 24 Hour Vital Signs Date Time Temp Pulse Resp B/P Pulse Ox O2 Delivery O2 Flow Rate FiO2 04/01/17 04:24 97.3 84 18 141/83 95 04/01/17 00:01 96.8 87 20 156/88 95 Room Air 03/31/17 20:56 97.3 86 20 157/92 93 Room Air 03/31/17 19:47 92 16 98 Room Air 2.0 28 03/31/17 19:47 92 16 98 Room Air 21 03/31/17 16:51 97.5 71 18 148/85 Room Air 03/31/17 12:34 97.9 71 18 148/85 98 Room Air 03/31/17 10:16 100 20 97 Room Air 03/31/17 09:35 Room Air 03/31/17 08:00 97.5 80 18 157/84 Room Air Intake and Output 03/31/17 04/01/17 19:00 07:00 Intake Total 200 ml Output Total 350 ml Balance -150 ml IV Total 200 ml Output Urine Total 350 ml # Voids 6 Laboratory Tests 04/01/17 05:40: White Blood Count 5.4, Red Blood Count 4.86, Hemoglobin 13.8L, Hematocrit 42.9, Mean Corpuscular Volume 88, Mean Corpuscular Hemoglobin 28.4, Mean Corpuscular Hemoglobin Concent 32.2, Red Cell Distribution Width 13.1, Platelet Count 314, Mean Platelet Volume 6.2L, Neutrophils (%) (Auto) , Lymphocytes (%) (Auto) , Monocytes (%) (Auto) , Eosinophils (%) (Auto) , Basophils (%) (Auto) , Neutrophils % (Manual) [Pending], Lymphocytes % (Manual) [Pending], Platelet Estimate [Pending], Platelet Morphology [Pending], Sodium Level 139, Potassium Level 4.4, Chloride Level 102, Carbon Dioxide Level 27, Anion Gap 10, Blood Urea Nitrogen 16, Creatinine 1.1, Estimat Glomerular Filtration Rate , Glucose Level 170H, Calcium Level 9.7 Height (Feet): 5 Height (Inches): 7.00 Weight (Pounds): 160 Objective General: alert, cooperative, no distress, appears stated age Head: normocephalic, without obvious abnormality, atraumatic Eyes: conjunctivae/corneas clear. PERRL, EOM's intact Throat: lips, mucosa, and tongue normal. MMM Neck: supple, symmetrical, trachea midline, and no JVD Lungs: clear to auscultation bilaterally Heart: regular rate and rhythm, S1, S2 normal, no murmur, click, rub or gallop Abdomen: soft, non-tender, non-distended, bowel sounds normal; no masses or organomegaly Extremities: extremities normal, atraumatic, no cyanosis or edema Pulses: 2+ and symmetric Skin: skin color, texture, turgor normal; no rashes or lesions Neurologic: grossly normal, no focal deficits Clotilde Arce M.D. Apr 01, 2017 07:54
[2017-04-01 08:23] VITALS: BP 147/86
[2017-04-01] MEDS: Montelukast 10mg tablet ORAL SCH (08:47)
[2017-04-01] MEDS: Allopurinol 100mg Tab ORAL SCH (08:47)
[2017-04-01] MEDS: Docusate 100mg cap ORAL SCH (08:47)
[2017-04-01] MEDS: Vitamin A&D Oint 2oz Tube TOPIC SCH ×2 (08:50→18:00)
[2017-04-01 09:29] LABS: BASOPHILS % (MANUAL) 1 % (0-2); LYMPHOCYTES % (MANUAL) 19 % (20-45); NEUTROPHILS % (MANUAL) 79 % (45-75); TOTAL CELLS COUNTED 100
[2017-04-01 09:30] LABS: BAND NEUTROPHILS % (MANUAL) 0 % (0-8); EOSINOPHILS % (MANUAL) 0 % (0-3); PLATELET ESTIMATE ADEQUATE; PLATELET MORPHOLOGY NORMAL
[2017-04-01 09:31] LABS: ANISOCYTOSIS 1+; MICROCYTES 1+; OVALOCYTES 1+
[2017-04-01 11:36] VITALS: BP 152/75
--- NOTE | 2017-04-01 11:44 | GI Progress Note ---
Assessment/Plan Problems: (1) Scabies ICD Codes: B86 - Scabies SNOMED: 24595089, 970813728 (2) Pancreatitis ICD Codes: K85.90 - Acute pancreatitis without necrosis or infection, unspecified SNOMED: 75883996 (3) Rash ICD Codes: R21 - Rash and other nonspecific skin eruption SNOMED: 652421533 (4) Abdominal pain ICD Codes: R10.9 - Unspecified abdominal pain SNOMED: 39734747 Status: stable Status Narrative Discussed with Dr. Almonte. Assessment/Plan CT AP reviewed >> No acute abnormality elevated lipase >> resolved denies ETOH use lipid panel >> unremarkable adv to low fat/cardiac diet ppi pain control fu labs outpatient GI procedures. The patient was seen and examined at bedside and all new and available data was reviewed in the patients chart. I agree with the above findings, impression and plan. (Patient seen earlier today. Signature stamp does not reflect patient encounter time.). -Jose Francisco Almonte MD Subjective Subjective denies abdominal pain c/o of itching right lower flank/buttock pain Objective Last 24 Hour Vital Signs Date Time Temp Pulse Resp B/P Pulse Ox O2 Delivery O2 Flow Rate FiO2 04/01/17 11:36 97.0 92 20 152/75 98 Room Air 04/01/17 08:34 Room Air 04/01/17 08:32 Room Air 04/01/17 08:23 97.6 97 20 147/86 96 Room Air 04/01/17 04:24 97.3 84 18 141/83 95 04/01/17 00:01 96.8 87 20 156/88 95 Room Air 03/31/17 20:56 97.3 86 20 157/92 93 Room Air 03/31/17 19:47 92 16 98 Room Air 2.0 28 03/31/17 19:47 92 16 98 Room Air 21 03/31/17 16:51 97.5 71 18 148/85 Room Air 03/31/17 12:34 97.9 71 18 148/85 98 Room Air Intake and Output 03/31/17 04/01/17 19:00 07:00 Intake Total 200 ml Output Total 350 ml Balance -150 ml IV Total 200 ml Output Urine Total 350 ml # Voids 6 Laboratory Tests Test 04/01/17 05:40 White Blood Count 5.4 K/UL (4.8-10.8) Red Blood Count 4.86 M/UL (4.70-6.10) Hemoglobin 13.8 G/DL (14.2-18.0) L Hematocrit 42.9 % (42.0-52.0) Mean Corpuscular Volume 88 FL (80-99) Mean Corpuscular Hemoglobin 28.4 PG (27.0-31.0) Mean Corpuscular Hemoglobin Concent 32.2 G/DL (32.0-36.0) Red Cell Distribution Width 13.1 % (11.6-14.8) Platelet Count 314 K/UL (150-450) Mean Platelet Volume 6.2 FL (6.5-10.1) L Neutrophils (%) (Auto) % (45.0-75.0) Lymphocytes (%) (Auto) % (20.0-45.0) Monocytes (%) (Auto) % (1.0-10.0) Eosinophils (%) (Auto) % (0.0-3.0) Basophils (%) (Auto) % (0.0-2.0) Differential Total Cells Counted 100 Neutrophils % (Manual) 79 % (45-75) H Lymphocytes % (Manual) 19 % (20-45) L Monocytes % (Manual) 1 % (1-10) Eosinophils % (Manual) 0 % (0-3) Basophils % (Manual) 1 % (0-2) Band Neutrophils 0 % (0-8) Platelet Estimate Adequate Platelet Morphology Normal Anisocytosis 1+ Microcytosis 1+ Ovalocytes 1+ Sodium Level 139 mEQ/L (135-145) Potassium Level 4.4 mEQ/L (3.4-4.9) Chloride Level 102 mEQ/L (98-107) Carbon Dioxide Level 27 mEQ/L (20-30) Anion Gap 10 (5-15) Blood Urea Nitrogen 16 mg/dL (7-23) Creatinine 1.1 mg/dL (0.7-1.2) Estimat Glomerular Filtration Rate mL/min (>60) Glucose Level 170 mg/dL (74-106) H Calcium Level 9.7 mg/dL (8.6-10.2) Height (Feet): 5 Height (Inches): 7.00 Weight (Pounds): 160 General Appearance: no apparent distress, alert Cardiovascular: normal rate Respiratory/Chest: normal breath sounds, no respiratory distress Abdominal Exam: normal bowel sounds, non tender, soft Extremities: normal range of motion Radha Peña N.P. Apr 01, 2017 11:44 JOSE FRANCISCO ALMONTE Apr 07, 2017 12:01
[2017-04-01] MEDS ORDERED: PREDNISONE20 MG ORAL (12:40)
[2017-04-01] MEDS ORDERED: PredniSONE 20mg tab ORAL ONE (13:00)
--- NOTE | 2017-04-01 13:50 | Infectious Diseases Prog Note ---
Assessment/Plan Assessment/Plan ASSESSMENT AND PLAN: 1. rash - ? etiology, still with rash and itching, ? allergic reaction/ hypersensitivity reaction based on biopsy pathology - s/p elimite - steroid taper - rickettsia serology pending - clinically better with steroids so far 2. ? uti, dysuria better, hematuria - s/p rocephin, s/p 3 days treatment 3. Asthma. 4. Enlarged prostate likely, elevated psa 5. hyperlipidemia 6. Asthma, treatment per primary, copd 7. No history of diabetes or hypertension. 8. Pancreatitis improved - per GI 9. gout 10. The patient has relative anemia. 11. No allergies. 12. Social history is negative. 13. Family history noncontributory. 14. MAR was noted. 15. Case discussed with RN. 16. Continue treatment per primary consultants. 17. Continue treatment per Dr. Mabry. 18. d/w Dr. Mabry and Dr. Cain Subjective Constitutional: Denies: fever HEENT: Denies: congestion Respiratory: Denies: shortness of breath Cardiovascular: Denies: chest pain Gastrointestinal/Abdominal: Denies: diarrhea, nausea, vomiting Genitourinary: Denies: dysuria Neurologic: Denies: headache Psychiatric: Denies: depression Skin: Reports: rash - slt less, less itching per patient Hematologic: Denies: bleeding Musculoskeletal: Reports: pain - less leg pain and stiffness Allergies: Coded Allergies: No Known Allergies (Verified Allergy, Mild, 08/29/10) Objective Vital Signs Last 24 Hour Vital Signs Date Time Temp Pulse Resp B/P Pulse Ox O2 Delivery O2 Flow Rate FiO2 04/01/17 11:36 97.0 92 20 152/75 98 Room Air 04/01/17 08:34 Room Air 04/01/17 08:32 Room Air 04/01/17 08:23 97.6 97 20 147/86 96 Room Air 04/01/17 04:24 97.3 84 18 141/83 95 04/01/17 00:01 96.8 87 20 156/88 95 Room Air 03/31/17 20:56 97.3 86 20 157/92 93 Room Air 03/31/17 19:47 92 16 98 Room Air 2.0 28 03/31/17 19:47 92 16 98 Room Air 21 03/31/17 16:51 97.5 71 18 148/85 Room Air Height (Feet): 5 Height (Inches): 7.00 Weight (Pounds): 160 General Appearance: no acute distress HEENT: normocephalic, atraumatic, anicteric, mucous membranes moist, PERRL, EOMI, pharynx normal, supple, no JVD Respiratory/Chest: lungs clear, normal breath sounds, no respiratory distress, no accessory muscle use Cardiovascular: normal rate, regular rhythm, no gallop/murmur, no JVD Abdomen: normal bowel sounds, soft, non tender, no organomegaly, non distended Genitourinary: other - no grider Extremities: no cyanosis Skin: rash - slt less rash noted on legs and 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 Correlate with clinical and laboratory findings Cardiomegaly Pelvic varicosities, of uncertain significance Degenerative spondylosis Bilateral renal cysts. Bilateral renal low-attenuation lesions which are too small to characterize, most likely benign simple cysts. No further followup necessary Other findings as noted, including small sliding-type hiatal hernia, degenerative spondylosis none serology - pending Laboratory Tests Test 04/01/17 05:40 White Blood Count 5.4 K/UL (4.8-10.8) Red Blood Count 4.86 M/UL (4.70-6.10) Hemoglobin 13.8 G/DL (14.2-18.0) L Hematocrit 42.9 % (42.0-52.0) Mean Corpuscular Volume 88 FL (80-99) Mean Corpuscular Hemoglobin 28.4 PG (27.0-31.0) Mean Corpuscular Hemoglobin Concent 32.2 G/DL (32.0-36.0) Red Cell Distribution Width 13.1 % (11.6-14.8) Platelet Count 314 K/UL (150-450) Mean Platelet Volume 6.2 FL (6.5-10.1) L Neutrophils (%) (Auto) % (45.0-75.0) Lymphocytes (%) (Auto) % (20.0-45.0) Monocytes (%) (Auto) % (1.0-10.0) Eosinophils (%) (Auto) % (0.0-3.0) Basophils (%) (Auto) % (0.0-2.0) Differential Total Cells Counted 100 Neutrophils % (Manual) 79 % (45-75) H Lymphocytes % (Manual) 19 % (20-45) L Monocytes % (Manual) 1 % (1-10) Eosinophils % (Manual) 0 % (0-3) Basophils % (Manual) 1 % (0-2) Band Neutrophils 0 % (0-8) Platelet Estimate Adequate Platelet Morphology Normal Anisocytosis 1+ Microcytosis 1+ Ovalocytes 1+ Sodium Level 139 mEQ/L (135-145) Potassium Level 4.4 mEQ/L (3.4-4.9) Chloride Level 102 mEQ/L (98-107) Carbon Dioxide Level 27 mEQ/L (20-30) Anion Gap 10 (5-15) Blood Urea Nitrogen 16 mg/dL (7-23) Creatinine 1.1 mg/dL (0.7-1.2) Estimat Glomerular Filtration Rate mL/min (>60) Glucose Level 170 mg/dL (74-106) H Calcium Level 9.7 mg/dL (8.6-10.2) Current Medications Medications (Trade) Dose Ordered Sig/Adore Route PRN Reason Start Time Stop Time Status Last Admin Dose Admin Acetaminophen (Tylenol) 650 mg Q6H PRN ORAL Mild Pain/Temp > 100.5 03/29/17 10:45 04/28/17 10:44 03/29/17 12:47 Acetaminophen/ Hydrocodone Bitart ([place] 10/325) 1 ea Q4H PRN ORAL For mod to severe Pain 03/30/17 10:15 04/06/17 10:14 Allopurinol (Zyloprim) 100 mg DAILY ORAL 03/30/17 09:00 04/29/17 08:59 04/01/17 08:47 Atorvastatin Calcium (Lipitor) 20 mg BEDTIME ORAL 03/30/17 21:00 04/29/17 20:59 03/31/17 20:30 Baclofen (Lioresal) 10 mg QHS ORAL 03/31/17 21:00 04/30/17 20:59 03/31/17 20:30 Bisacodyl (Dulcolax) 10 mg HSPRN PRN RECTAL Constipation 03/29/17 14:30 04/28/17 14:14 Budesonide/ Formoterol Fumarate (Symbicort 160/ 4.5) 1 puff BID INH 03/30/17 09:00 04/29/17 08:59 03/30/17 20:11 Dextrose (Dextrose 50%) STAT PRN IV Hypoglycemia 03/29/17 14:15 04/28/17 14:14 Diphenhydramine HCl (Benadryl Cream) 1 applic THREE TIMES A DAY PRN TOPIC Itching 03/31/17 10:00 04/30/17 09:59 Diphenhydramine HCl (Benadryl) 25 mg Q6H PRN ORAL Itching/Pruritis 03/29/17 14:15 04/28/17 14:14 Docusate Sodium (Colace) 100 mg EVERY 12 HOURS ORAL 03/29/17 21:00 04/28/17 20:59 04/01/17 08:47 Heparin Sodium (Porcine) (Heparin 5000 units/ml) 5,000 units EVERY 8 HOURS SUBQ 03/29/17 14:00 04/28/17 13:59 04/01/17 05:48 Magnesium Hydroxide (Mom) 30 ml HSPRN PRN ORAL Constipation 03/29/17 14:15 04/28/17 14:14 Metoclopramide HCl (Reglan) 10 mg Q6H PRN IVP Nausea & Vomiting 03/29/17 14:15 04/28/17 14:14 Montelukast Sodium (Singulair) 10 mg DAILY ORAL 03/30/17 09:00 04/29/17 08:59 04/01/17 08:47 Ondansetron HCl (Zofran) 4 mg Q6H PRN IVP Nausea & Vomiting 03/29/17 14:15 04/28/17 14:14 Pantoprazole (Protonix) 40 mg DAILY ORAL 03/30/17 09:00 04/29/17 08:59 04/01/17 08:47 Polyethylene Glycol (Miralax) 17 gm HSPRN PRN ORAL Constipation 03/29/17 14:15 04/28/17 14:14 Simethicone (Mylicon) 80 mg QID PRN ORAL gas 03/30/17 10:15 04/29/17 10:14 Tamsulosin HCl (Flomax) 0.4 mg BEDTIME ORAL 03/30/17 21:00 04/29/17 20:59 03/31/17 20:30 Vitamin A/Vitamin D (A & D Oint) 1 applic BID TOPIC 03/31/17 10:00 04/30/17 09:59 04/01/17 08:50 Zolpidem Tartrate (Ambien) 5 mg HSPRN PRN ORAL INSOMNIA 03/29/17 21:00 04/28/17 20:59 ASHLEY DURAN Apr 01, 2017 13:50
--- NOTE | 2017-04-01 14:30 | Discharge Instructions ---
Discharge Instructions Discharge Instructions Follow up with: Follow-up with Dr. Cain in 1 week. Follow-up with dermatology in 1 week Diet: regular Resume Normal Activity?: Yes Activity: resume normal activities For Congestive Heart Failure Reminder Report to your physician any weight gain of 5 pounds or more in one week. Clotilde Arce M.D. Apr 01, 2017 14:30
[2017-04-01] MEDS ORDERED: Tubing IV Secondary IV ONE (14:54)
[2017-04-01] MEDS ORDERED: 1/2 NS 1000ml IV ONE (14:54)
[2017-04-01 15:43] VITALS: BP 141/86
--- NOTE | 2017-04-01 20:07 | Discharge Summary ---
Discharge Summary Hospital Course Date of Admission Mar 29, 2017 at 06:03 Date of Discharge 04/01/17 Admitting Diagnosis pancreatitis Reason for Hospitalization: acute pancreatitis HPI 77y/o male with pmh of HLD, gout, COPD who presents with abd pain and back pain. Pt has had worsening symptoms for 3 days. He describes back pain radiating to abdomen. He was supposed to see PMD today but pain was so bad that he came into ER. Pain described as sharp. Denies prior episodes of similar pain. Denies trauma, f/c, n/v, d/c, chest pain, SOB. Also c/o dysuria. Has skin lesions throughout and has had a recent biopsy. It is itchy. He is applying a topical steroid to lesions w/ some improvement. Denies alcohol abuse. Consultations Infectious disease, Gastroenterology Hospital Course Pt was admitted and seen by GI. He was initially kept NPO and on IVFs. Once symptoms improving, pt was started on clear liquids and then advanced to regular diet which he tolerated well. Pt was also seen by ID given hematuria and rash. Pt was empirically treated for scabies. Pt with persistent symptoms. He has recent outpatient skin biopsy which per PCP showed allergic reaction. Pt had been on bactrim, so possible drug allergy. Pt was given prednisone with some improvement. Pt was d/c'd with prednisone taper. Prior to discharge, pt was HD stable, tolerating PO, and ambulating w/o assistance. Discharge physical exam: General: alert, cooperative, no distress, appears stated age Head: normocephalic, without obvious abnormality, atraumatic Eyes: conjunctivae/corneas clear. PERRL, EOM's intact Throat: lips, mucosa, and tongue normal. MMM Neck: supple, symmetrical, trachea midline, and no JVD Lungs: clear to auscultation bilaterally Heart: regular rate and rhythm, S1, S2 normal, no murmur, click, rub or gallop Abdomen: soft, non-tender, non-distended, bowel sounds normal; no masses or organomegaly Extremities: extremities normal, atraumatic, no cyanosis or edema Pulses: 2+ and symmetric Skin: skin color, texture, turgor normal; maculopapular lesions seen on extremities, abd Neurologic: grossly normal, no focal deficits Discharge Medications New Medications: Prednisone* (Prednisone*) 20 Mg Tablet 40 MG ORAL DAILY, #5 TAB Start Monday 04/02 40mg daily x 2 days, 20mg daily x 2 days, 10mg daily x 2 days Continued Medications: Allopurinol* (Allopurinol*) 100 Mg Tablet 100 MG ORAL DAILY, TAB Budesonide/Formoterol Fumarate (Symbicort 160-4.5 Mcg Inhaler) 10.2 Gm Hfa.aer.ad 1 PUFF IH, #1 INH 0 Refills Montelukast Sodium* (Montelukast Sodium*) 10 Mg Tablet 10 MG ORAL DAILY, TAB Roflumilast (Daliresp) 500 Mcg Tablet 500 MCG PO DAILY, TAB Simvastatin (Zocor) 40 Mg Tablet 40 MG ORAL BEDTIME, TAB Tamsulosin Hcl (Tamsulosin Hcl*) 0.4 Mg Cap.er.24h 0.4 MG ORAL BEDTIME, CAP Discharge Condition Upon Discharge: stable Discharge Disposition Patient was discharged to Home (01) Discharge Diagnoses: (1) Pancreatitis (2) Hematuria (3) BPH (benign prostatic hyperplasia) (4) HLD (hyperlipidemia) (5) Rash Discharge Instructions Discharge Instructions Follow up with: Follow-up with Dr. Cain in 1 week. Follow-up with dermatology in 1 week Activity: resume normal activities Clotilde Arce M.D. Apr 01, 2017 20:07
[2017-04-04 14:29] LABS: Q FEVER IGG PHASE I SCREEN Negative (Neg:<1:16); Q FEVER IGG PHASE II SCREEN Negative (Neg:<1:16); RMSF AB SCREEN IGG Negative (Negative)
== END 2017-04-01 19:50 | disposition home or self-care (01) | DRG 440 ==
LOC: EMR 04:40 → 4W 06:03 → EDBEDREQ 10:56 → 4W 16:20
DX: K85.90 Acute pancreatitis without necrosis or infection, unspecified (principal); J44.9 Chronic obstructive pulmonary disease, unspecified; D64.9 Anemia, unspecified; N28.1 Cyst of kidney, acquired; B86 Scabies; E78.5 Hyperlipidemia, unspecified; R31.9 Hematuria, unspecified; N40.0 Benign prostatic hyperplasia without lower urinary tract symptoms; M10.9 Gout, unspecified; J45.909 Unspecified asthma, uncomplicated; K44.9 Diaphragmatic hernia without obstruction or gangrene; M47.899 Other spondylosis, site unspecified; R30.0 Dysuria
CPT/HCPCS: 36415; 72110; 72220; 73502; 74177; 80048; 80053; 80061; 81003; 82150; 83690; 83735; 84153; 84484; 85007; 85025; 86757; 94640

== ENCOUNTER 2018-11-16 09:30 | Outpatient (CLI) | payer MEDICARE, OTHER ==
[~2018-11-16 09:30] MED LIST: ALLOPURINOL100 M1 ORAL; DALIRESP500 MCG PO; MONTELUKAST SOD10 MG ORAL; PREDNISONE20 MG ORAL; SIMVASTATIN40 MG ORAL; SYMBICORT 16010.2 G1 IH; TAMSULOSIN HCL0.4 MG ORAL
--- NOTE | 2018-11-16 11:47 | Diagnostic Imaging Report ---
Indication: Lower back pain on and off x2 weeks, pain radiating down right leg Technique: Sagittal T1 and T2 fast spin echo, sagittal STIR, axial T1 and T2 fast spin-echo images of the lumbar spine Comparison: 06/04/2010, also plain radiograph dated 03/31/2017 Findings: There is a minimal mid lumbar dextrorotoscoliotic deformity.. There is mild anterior offset of L3 on L4, which is progressive since the previous study. Remainder of the bony alignment is normal. The vertebral body heights are preserved. The conus medullaris terminates at the L1 level. The vertebral marrow signal is normal. At L1-2, there is mild circumferential annular bulge which does not significantly narrow the spinal canal. The there is minimal neural foramina narrowing due to the bulging disc and slight facet arthrosis. There is very mild degenerative disc narrowing. There are small intravertebral disc herniations of the adjacent endplates At L2-3, facet arthrosis results in mild narrowing of the bilateral neural foramina. There is mild circumferential annular bulge which results in slight neural foraminal compromise on the right. No significant spinal stenosis. The disc space is preserved. There is a small L3 superior endplate intravertebral disc herniation At L3-4, there is circumferential annular bulge as well as broad-based left paracentral and subarticular disc protrusion. This, in combination with facet and ligamentum flavum hypertrophy, results in narrowing of the spinal canal, which measures 9 mm AP dimension, 7 mm minimal transverse dimension. There is also likely compromise of the bilateral lateral recesses. There is moderate compromise of the left neural foramen, due to a combination of the bulging disc as well as the alignment abnormality. No significant right neural foraminal compromise is demonstrated. The previously reported synovial cyst in this location is no longer visualized. The facet arthrosis on the left appears worse, however. There is mild degenerative disc narrowing At L4-5, there is again demonstrated circumferential annular bulge, with a high intensity zone seen in the posterior disc. This is central and right paracentral, with the paracentral component appearing to have progressed somewhat since previous study and possibly compromising the lateral recess. The bulging disc and facet arthrosis also result in moderate compromise of the right neural foramen which appears to have progressed somewhat since the previous study. No significant spinal stenosis. The left neural foramen is preserved. The disc space is preserved At L5-S1, no significant disc bulge or protrusion or spinal stenosis. Facet hypertrophy results in mild right and mild to moderate left neural foraminal compromise. The included extra spinal soft tissues demonstrate a large right renal cyst, also previously demonstrated. Other smaller bilateral renal cysts are also evident Impression: No acute bony trauma Multilevel degenerative changes, as detailed on a level by level basis above. Note that at L3-4, the prior exam demonstrated a extradural synovial cyst on the left. This is no longer visible. However, there is progressive facet hypertrophy at the same location, so the degree of spinal stenosis remains similar to the previous exam. Incidental finding bilateral renal cysts
== END 2018-11-16 11:30 | disposition home or self-care (01) ==
LOC: MRI 09:30
DX: M54.16 Radiculopathy, lumbar region (principal); N20.0 Calculus of kidney
CPT/HCPCS: 72148

== ENCOUNTER 2018-11-22 15:47 | Emergency (ER) | payer MEDICARE, MEDICAID ==
[~2018-11-22] VITALS: Ht 172.7 cm; Wt 65.8 kg
[2018-11-22] MEDS ORDERED: TRAZODONE HCL50 MG ORAL (16:00)
[2018-11-22] MEDS ORDERED: DUREZOL5 M1 LEFT EYE (16:00)
[2018-11-22] MEDS ORDERED: SYMBICORT 1601 PUFFS INH (16:00)
--- NOTE | 2018-11-22 16:11 | NUR ---
ED Nurse Note: Pt came into the ER w/ complaints of right lower back pain radiating to the RLQ of the abdomen x 9 days. Pt is rating the pain a 7/10. Pt had an MRI done at this hospital x 1 week ago but unaware of the results. Pt is A + O x4. Ambulatory. Skin warm to touch.
[2018-11-22 16:12] VITALS: BP 152/83
--- NOTE | 2018-11-22 16:40 | Emergency Room Report ---
History of Present Illness General Chief Complaint: Back Pain-No Injury Source: Patient Present Illness HPI Patient is a 78-year-old Male who presented after increased right-sided low back pain. Patient a prior history of chronic back pain and had a recent MRI done at this facility. He had reported having increased pain for the past several days. This was not relieved with patient's recently prescribed pain medications. He denies any fever. He had not been having difficulty with urination. He denies any numbness to his extremities. He reported having severe pain he denied any bladder or bowel dysfunction. He has been able to ambulate Allergies: Coded Allergies: No Known Allergies (Verified , 11/22/18) Patient History Past Medical History: see triage record Reviewed Nursing Documentation: PMH: Agreed; PSxH: Agreed Nursing Documentation-PMH Past Medical History: No Stated History Hx Cardiac Problems: No - SCORIASIS, BPH Hx Hypertension: Yes Hx Asthma: Yes Hx COPD: Yes Hx Cancer: No Hx Gastrointestinal Problems: Yes Hx Neurological Problems: No Review of Systems All Other Systems: negative except mentioned in HPI Physical Exam Vital Signs Date Time Temp Pulse Resp B/P (MAP) Pulse Ox O2 Delivery O2 Flow Rate FiO2 11/22/18 15:50 97.9 62 16 166/120 96 Room Air Sp02 EP Interpretation: reviewed, normal General Appearance: normal inspection, well appearing, alert, GCS 15, non-toxic , Chronically Ill Head: atraumatic ENT: normal ENT inspection, hearing grossly normal, normal voice Neck: normal inspection, full range of motion, supple, no bony tend Respiratory: normal inspection, lungs clear, normal breath sounds, no respiratory distress, no retraction, no wheezing Cardiovascular #1: regular rate, rhythm, no edema Gastrointestinal: normal inspection, normal bowel sounds, non tender, soft, no guarding, no hernia Genitourinary: no CVA tenderness Musculoskeletal: normal inspection, back normal, normal range of motion Neurologic: normal inspection, alert, oriented x3, responsive, instrumentation supervisor III-XII nml as tested, speech normal Psychiatric: normal inspection, judgement/insight normal, mood/affect normal Skin: normal inspection, normal color, no rash Medical Decision Making Diagnostic Impression: Primary Impression: Back pain ER Course Patient presented for back pain. Differential diagnosis included but was not limited to herniated disc, cauda equina syndrome, abdominal aortic aneurysm, perforated ulcer, spinal epidural abscess, spinal stenosis, lumbar fracture, metastatic lesion, pyelonephritis. Because of complexity of patient's case laboratory testing and imaging studies were ordered. Patient was noted to have what appears to be musculoskeletal back pain. Patient's MRI results were reviewed and he was noted to have multiple level degenerative changes to his back without evident fracture. Patient was given pain medications for symptomatic treatment.Patient was noted to have some slight urinary infection was started on oral antibiotics. He was given prescription for Keflex. Patient was advised to follow-up with his primary care physician for recheck. Labs Test 11/22/18 16:34 Urine Color Pale yellow Urine Appearance Clear Urine pH 5 (4.5-8.0) Urine Specific [place] 1.020 (1.005-1.035) Urine Protein 2+ (NEGATIVE) Urine Glucose (UA) Negative (NEGATIVE) Urine Ketones Negative (NEGATIVE) Urine Blood 3+ (NEGATIVE) Urine Nitrite Negative (NEGATIVE) Urine Bilirubin Negative (NEGATIVE) Urine Urobilinogen Normal MG/DL (0.0-1.0) Urine Leukocyte Esterase Negative (NEGATIVE) Urine RBC 5-10 /HPF (0 - 0) Urine WBC 2-4 /HPF (0 - 0) Urine Squamous Epithelial Cells None /LPF (NONE/OCC) Urine Bacteria Few /HPF (NONE) Last Vital Signs Date Time Temp Pulse Resp B/P (MAP) Pulse Ox O2 Delivery O2 Flow Rate FiO2 11/22/18 16:12 98.0 60 12 152/83 100 Room Air Status: improved Disposition: HOME, SELF-CARE Condition: Stable Scripts Cephalexin* (KEFLEX*) 500 Mg Capsule 500 MG ORAL EVERY 6 HOURS, #28 CAP Prov: Jerzy Barreto MD 11/22/18 Diclofenac Sodium (VOLTAREN) 100 Gm Gel..gram. 5 GM TP DAILY for pain, #100 GM Prov: Jerzy Barreto MD 11/22/18 Jerzy Barreto MD Nov 22, 2018 16:40
[2018-11-22] MEDS ORDERED: HYDROcodone/Acetamin 5/325 tab ORAL ONE (16:45)
[2018-11-22] MEDS ORDERED: Ketorolac 60mg Inj IM ONE (16:45)
[2018-11-22] MEDS ORDERED: VOLTAREN100 G1 TP (16:50)
[2018-11-22 16:55] LABS: APPEARANCE,URINE CLEAR; BILIRUBIN, URINE NEGATIVE (NEGATIVE); COLOR,URINE PALE YELLOW; GLUCOSE, URINE (UA) NEGATIVE (NEGATIVE); KETONES,URINE NEGATIVE (NEGATIVE); LEUKOCYTE ESTERASE ,URINE NEGATIVE (NEGATIVE); NITRITE,URINE NEGATIVE (NEGATIVE); PH,URINE 5 (4.5-8.0); PROTEIN,URINE 2+ (NEGATIVE); UROBILINOGEN,URINE NORMAL MG/DL (0.0-1.0)
[2018-11-22] MEDS ORDERED: CEPHALEXIN500 MG ORAL (17:49)
[2018-11-22] MEDS ORDERED: Cephalexin 500mg cap ORAL ONE (18:00)
--- NOTE | 2018-11-22 18:07 | NUR ---
ER DISCHARGE NOTE: Patient is cleared to be discharged per ERMD, pt is aox4, on room air, with stable vital signs. pt was given dc and prescription instructions, pt was able to verbalize understanding, pt id band removed without complications. pt is able to ambulate with steady gait. pt took all belongings.
== END 2018-11-22 18:06 | disposition home or self-care (01) ==
LOC: EMR 16:35
DX: M54.5 Low back pain (principal); I10 Essential (primary) hypertension; L40.9 Psoriasis, unspecified; J44.9 Chronic obstructive pulmonary disease, unspecified
CPT/HCPCS: 81003; 96372; 99283

== ENCOUNTER 2018-12-12 09:42 | Outpatient (CLI) | payer MEDICARE, MEDICAID ==
[~2018-12-12 09:42] MED LIST changes: +CEPHALEXIN500 MG ORAL; +DUREZOL5 M1 LEFT EYE; +SYMBICORT 1601 PUFFS INH; +TRAZODONE HCL50 MG ORAL; +VOLTAREN100 G1 TP
--- NOTE | 2018-12-12 11:49 | Diagnostic Imaging Report ---
Indication: Osteopenia Technique: Transaxial images of the L1, L2, and L3 vertebral bodies obtained in a Siemens sensation [address] Regions of interest were drawn for both cortical and medullary portions of the bone. Average bone then calculated. Automatic Exposure Control was utilized. Total Dose length Product (DLP): 30.[address] Dose Index Volume (CTDIvol): 0.42, 3.01, 2.99, 2.91 mGy Findings: The patient's bone mineral density is 65.7 mg Ca-LAI/ml. The T score is -4.11 this means that the patient's average bone mineral density is -4.11 standard deviations less than a typical 20-year-old female. The patient's Z score is -0.36. This means that the patient's average bone mineral density is -0.36 standard deviations less than age-matched controls. Impression: Bone mineral density is over 25% below that of young normal females. This patient is considered osteoporotic by WHO criteria. Insufficiency fracture risk is high. Patient should be considered for therapy, if it has not already been started. Recommend followup scan in one year to monitor response to therapy. The CT scanner at [facility] is accredited by the [place] and the scans are performed using dose optimization techniques as appropriate to a performed exam including Automatic Exposure control.
== END 2018-12-12 11:42 | disposition home or self-care (01) ==
LOC: CAT 09:42
DX: M81.0 Age-related osteoporosis without current pathological fracture (principal)
CPT/HCPCS: 77078